=== PATIENT | male | born 1955 | race Caucasian/White ===

== ENCOUNTER 2019-11-27 05:02 | Observation (INO) | payer BC, SELFPAY ==
--- NOTE | ~2019-11-27 | XR_ITS ---
EXAMINATION: XR chest 2V DATE: 11/27/2019 05:53 INDICATION: Midline chest pain. TECHNIQUE: Frontal and lateral views of the chest were obtained. COMPARISON: Chest 2 views 01/15/2019, chest CT 08/26/2013 FINDINGS: The lung volumes are small with mild chronic relative elevation of right hemidiaphragm. The re is mild atelectasis in the lower lung zones. A calcified right lung nodule and calcified right hil ar lymph nodes are consistent with old granulomatous disease. No pleural effusion or pneumothorax. Th e heart size is normal. Surgical clips in the right upper quadrant are likely from cholecystectomy. IMPRESSION: 1. Small lung volumes with mild atelectasis in the lower lung zones. Reviewed, dictated and finalized at location A. MANAGEMENT COORDINATOR
[2019-11-27 05:08] VITALS: BP 163/106; PULSE 45; RESP 18; TEMP 36.8; O2SAT 98
--- NOTE | 2019-11-27 05:18 | ECG_ITS ---
Measurements Intervals [place] Rate: 70 P: 60 CT: 167 QRS: -22 QRSD: 104 T: 35 QT: 349 QTc: 378 Interpretive Statements SINUS RHYTHM NONSPECIFIC T-WAVE ABNORMALITY- INF/LAT LEADS BASELINE ARTIFACT- I, II, III, AVR, AVL BORDERLINE ECG Electronically Signed On 11-27-2019 7:12:07 DISASTER RECOVERY CONSULTANT by Wellington Celis D.O.
--- NOTE | 2019-11-27 05:18 | ED.CHESTPAIN ---
HPI - Chest Pain General Chief Complaint: Chest Pain Stated Complaint: chest pain Time Seen by Provider: 11/27/19 05:12 Source: patient Mode of arrival: ambulatory Limitations: no limitations History of Present Illness HPI narrative: Patient is a 64-year-old male who presents to the emergency department with complaint of chest discomfort. Patient reports onset of symptoms a couple of weeks ago. Patient reports intermittent episodes of pressure and fullness in his chest that radiates to the scapular region bilaterally right being worse than left. Patient has noticed some shortness of breath that is significantly more notable with exertion. He also reports fatigue. Patient denies any prior cardiac history and does not have any known family history of coronary artery disease. complaint: chest discomfort Onset (ago): week(s) Timing of current episode: constant Pain location: substernal Pain radiation: left scapula and right scapula Quality: fullness and other (pressure) Relieving factors: nothing Associated symptoms: dyspnea (worse with exertion) and other (fatigue) Risk Factors Coronary artery disease risk factors: hypertension Related Data Home Medications Medication Instructions Recorded Confirmed alprazolam 0.25 mg tablet 0.25 mg PO TID PRN 08/26/19 10/12/19 clindamycin HCl 150 mg capsule 150 mg PO Q6H 08/26/19 escitalopram oxalate 20 mg tablet 10 mg PO DAILY 08/26/19 10/12/19 valacyclovir 1 gram tablet 1,000 mg PO TID 08/26/19 zolpidem 10 mg tablet 10 mg PO .QHS PRN tablet 10/12/19 10/12/19 Allergies Allergy/AdvReac Type Severity Reaction Status Date / Time sulfamethizole Allergy Unknown Hives Verified 03/09/19 15:04 No Known Allergies Allergy Verified 01/15/19 08:04 Review of Systems Review of Systems: All systems reviewed & are unremarkable except as noted in HPI and below Constitutional: Constitutional: Reports fatigue and Reports lethargy ENT: Reports dizziness Cardiovascular: Cardiovascular: Reports chest pain Respiratory: Respiratory: Reports dyspnea PMFSH Past Medical History Medical History (Updated 11/27/19 @ 06:22 by Celeste Nieves MD) Chronic anxiety Chronic depression Essential (primary) hypertension Hypersomnia Male erectile dysfunction, unspecified Seasonal allergic rhinitis Vitamin B12 deficiency anemia, unspecified Vitamin D deficiency, unspecified Surgical History Surgical History (Updated 11/27/19 @ 05:22 by Celeste Nieves MD) History of cholecystectomy Family History Family History (Updated 03/09/19 @ 15:05 by DOCTOR UNKNOWN) Mother Hypertension, Onset Age: 84 Social History Social History (Updated 11/27/19 @ 05:23 by Celeste Nieves MD) Smoking status: Never smoker Gender identity (if verbalized by the patient): Male Comments PMD: Dr. Alexis Sullivan Exam Const: General: cooperative, no acute distress and alert Nutritional Appearance: well nourished Orientation/consciousness: patient oriented x3 Limitations: no limitations HENMT: Mouth: Yes lip normal and Yes moist mucous membranes Resp: Effort & Inspection: normal respiratory effort Auscultation: clear to auscultation bilaterally Cardio: Rate: regular rate Rhythm: regular rhythm Peripheral pulses: dorsalis pedis present bilateral 2+ GI: GI Palp: Yes Soft to palpation and No Tenderness to palpation present (GI) Auscultation: normal bowel sounds Skin: General skin exam: normal color Neuro: General: patient oriented x3 Cognition (Neuro): normal cognition Speech: normal speech Extrem: General: normal to inspection, full ROM and no clubbing, cyanosis or edema Psych: Mental Status: mental status grossly normal Affect: normal affect Attitude: cooperative Course Course Emergency Course: Patient with resolution of his chest discomfort with sublingual nitroglycerin. Blood pressure normalized. Patient advised of test results, diagnosis, and plans for place
[2019-11-27] MEDS: ASPIRIN 81 MG CHEWABLE TABLET 324 MG PO (05:26)
[2019-11-27 05:32] LABS: Basophils Percent Auto 0.2 % (0.2-1.2); Eosinophils Absolute Auto 0.1 K/mm3 (0-0.3); Eosinophils Percent Auto 1.6 % (0-4.4); Hemoglobin 14.3 g/dL (14.0-18.0); Immature Granulocyte Absolute 0.03 K/mm3 (0.00-0.031); Immature Granulocyte Percent A 0.4 % (0-0.5); Lymphocytes Absolute Auto 2.13 K/mm3 (0.9-3.2); Mean Corpuscular HGB Conc 32.5 g/dl (32-36); Mean Corpuscular Volume 95.4 fl (80-100); Mean Platelet Volume 10.5 fl (7.4-10.4); Monocytes Absolute Auto 0.7 K/mm3 (0.1-0.6); Monocytes Percent Auto 8.3 % (2.6-8.5); Neutrophils Absolute Auto 5.5 K/mm3 (1.3-6.7); Neutrophils Percent Auto 64.5 % (45.5-73.1); Platelet Count Result 216 k/mm3 (150-375); Red Blood Count 4.61 M/mm3 (4.6-6.20); Red Cell Distribution Width 13.3 % (11.5-14.5); White Blood Count 8.5 K/mm3 (4.5-10.0)
[2019-11-27 05:42] LABS: Prothrombin Time 13.2 Seconds (11.1-14.7)
[2019-11-27 05:43] LABS: Partial Thromboplastin Time 25.8 SECONDS (22.3-36.8)
[2019-11-27 05:45] LABS: Alanine Aminotransferase 31 U/L (4-50); Albumin Level 4.2 g/dL (3.5-5.1); Alkaline Phosphatase 77 U/L (38-126); Aspartate Amino Transferase 24 U/L (17-59); Bilirubin,Total 0.9 mg/dL (0.2-1.3); Blood Urea Nitrogen 16 mg/dL (9-20); Calcium 9.5 mg/dL (8.4-10.2); Carbon Dioxide 31 mmol/L (22-30); Chloride 102 mmol/L (98-107); Estimated CRCL calculation 84 ml/min; Estimated Glomerular Filt Rate > 60; Glucose 100 mg/dL (75-110); Potassium 3.5 mmol/L (3.4-5.0); Sodium 143 mmol/L (137-145)
[2019-11-27 05:56] LABS: Troponin I < 0.012 ng/mL (0.000-0.034)
[2019-11-27 06:01] VITALS: BP 136/88; PULSE 58; RESP 18; O2SAT 97
[2019-11-27 06:54] VITALS: BP 133/85; PULSE 58; RESP 18; O2SAT 97
[2019-11-27 06:55] LABS: Cholesterol 201 mg/dL (0-200); HDL Direct 51 mg/dL; Triglycerides 94 mg/dL (<150)
--- NOTE | 2019-11-27 07:03 | PC.NURSE ---
Patient report faxed to floor.
[2019-11-27 07:05] LABS: LDL Cholesterol Direct 126 mg/dL
[2019-11-27 07:32] VITALS: BP 147/87; PULSE 64; RESP 20; O2SAT 99
[2019-11-27 07:53] VITALS: BP 174/106; PULSE 62; RESP 13; TEMP 36.9; O2SAT 100
[2019-11-27 08:00] VITALS: PULSE 65
[2019-11-27 08:01] VITALS: BMI 38.0
[2019-11-27 09:00] LABS: Troponin I < 0.012 ng/mL (0.000-0.034)
--- NOTE | 2019-11-27 09:27 | ECG_ITS ---
Measurements Intervals [place] Rate: 60 P: 39 [place]: 164 QRS: -23 QRSD: 107 T: 30 QT: 400 QTc: 403 Interpretive Statements SINUS RHYTHM DELAYED PRECORDIAL R/S TRANSITION BORDERLINE T WAVE ABNORMALITY- ANT/INF LEADS BORDERLINE ECG Electronically Signed On 11-27-2019 8:27:31 BLEACHER PULP by Wellington Celis D.O.
[2019-11-27] MEDS: IRBESARTAN 150 MG TABLET 300 MG PO (09:38)
[2019-11-27] MEDS: hydroCHLOROthiazide 12.5 MG CAPSULE PO (09:38)
[2019-11-27] MEDS: buPROPion HCL XL (24 HR) 150 MG TABCR 300 MG PO (09:38)
--- NOTE | 2019-11-27 10:38 | PM.IMHP ---
H&P: HPI History of Present Illness Chief complaint: chest pain/htn Narrative: Cesar Luciano is a 64 year old male without any previous history of coronary artery disease who presented to the emergency room early this morning with some chest pain and was evaluated and admitted as a chest Pain Center patient. 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 He states that he actually was having these symptoms over intermittently over the last 2-3 weeks and spoke to his primary care physician about this couple of weeks ago he was advised to come to the hospital emergency room for evaluation but he did not until this morning. The patient does not notice any head pattern of exertional chest pain he is a are overweight gentleman does not exercise with any regularity but with normal activities of daily living he does not experience chest pain. 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 He denies any symptoms of palpitations orthopnea PND or edema. He does have symptoms of nocturnal snoring and interruptions in his breathing his who does have sleep apnea alerted him to the fact that he was having typical symptoms of this and a sleep study was recommended in the past but the patient also was not compliant in getting that done. He states that he has been evaluated/under observation at 5/6 hospital's in the last couple of years with episodes of chest pain and known his ever identified a cardiac problem he states he has been previously a observed here at [place], at [facility] and at least 1 other hospital he believed. None of these hospital evaluations have ever demonstrated evidence of ischemic heart disease. During one of them he had a stress echocardiogram done which he states was negative. He does have longstanding hypertension he denies any history of dyslipidemia or diabetes. There is no family history of any first-degree relative with coronary artery disease. Review of Systems Constitutional: Constitutional: Reports lethargy and Reports weakness Eyes: Eyes: Reports no additional eye complaints ENT: Reports system reviewed and no additional complaints, except as documented Cardiovascular: Cardiovascular: Reports as per HPI Respiratory: Respiratory: Reports no additional respiratory complaints Gastrointestinal: Gastrointestinal: Reports no additional gastrointestinal complaints Musculoskeletal: Musculoskeletal: Reports no additional musculoskeletal complaints Integumentary/Breasts: Skin/Breast: Reports system reviewed and no additional complaints, except as docu PMFSH Past Medical History Medical History (Updated 11/27/19 @ 06:22 by Celeste Nieves MD) Chronic anxiety Chronic depression Essential (primary) hypertension Hypersomnia Male erectile dysfunction, unspecified Seasonal allergic rhinitis Vitamin B12 deficiency anemia, unspecified Vitamin D deficiency, unspecified Surgical History Surgical History (Updated 11/27/19 @ 05:22 by Celeste Nieves MD) History of cholecystectomy Family History Family History (Updated 11/27/19 @ 08:00 by Kaelyn Monroy RN) Mother Hypertension, Onset Age: 84 Sibling Hypertension Social History Social History (Updated 11/27/19 @ 05:23 by Celeste Nieves MD) Smoking status: Never smoker Gender identity (if verbalized by the patient): Male Meds Home Medications and Allergies Home Medications Medication Instructions Recorded Confirmed Type irbesartan 300 1 tablet PO DAILY #30 tablet 09/08/19 11/27/19 Rx mg-hydrochlorothiazide 12.5 mg tablet bupropion HCl 300 mg 24 hr tablet, 300 mg PO QAM #30 tablet 10/12/19 11/27/19 Rx extended release Allergies Allergy/AdvReac Type
[2019-11-27 11:35] LABS: Troponin I < 0.012 ng/mL (0.000-0.034)
--- NOTE | 2019-11-27 12:27 | ECG_ITS ---
Measurements Intervals [place] Rate: 72 P: 26 [place]: 161 QRS: -30 QRSD: 99 T: 12 QT: 362 QTc: 398 Interpretive Statements SINUS RHYTHM BORDERLINE R WAVE PROGRESSION, ANTERIOR LEADS NONSPECIFIC T-WAVE ABNORMALITY- ANT/INF LEADS BASELINE ARTIFACT- II, III, AVL, AVF BORDERLINE ECG Electronically Signed On 11-27-2019 11:48:52 DEXIGRAPH OPERATOR by Wellington Celis D.O.
--- NOTE | 2019-11-27 13:10 | PC.NURSE ---
Discharge instructions reviewed with patient, all questions answered, IV discontinued, and patient dressing self.
== END 2019-11-27 12:40 | disposition home or self-care (01) ==
LOC: ANHED 06:52 → ANHCPC 06:59
PROVIDERS: Admitting Provider Internal Medicine Cardiovascular Disease; Emergency Provider Emergency Medicine; PCP Family Medicine; Visit Provider Specialist
DX: R07.9 Chest pain, unspecified (principal); I10 Essential (primary) hypertension; E66.9 Obesity, unspecified; Z68.38 Body mass index [BMI] 38.0-38.9, adult; F41.9 Anxiety disorder, unspecified; F32.9 Major depressive disorder, single episode, unspecified; G47.10 Hypersomnia, unspecified
CPT/HCPCS: 36415; 71046; 80053; 80061; 84484; 85025; 85610; 85730; 93005; 99285; A9270; G0378

== ENCOUNTER 2020-08-30 06:54 | Outpatient (NON) | payer BC, SELFPAY ==
[2020-08-30 23:37] LABS: SARS-CoV-2 RNA PCR Positive
== END 2020-08-30 06:55 ==
PROVIDERS: PCP Family Medicine; Visit Provider Family Medicine
DX: U07.1 COVID-19 (principal)
CPT/HCPCS: 87635; C9803; U0003

== ENCOUNTER 2021-07-14 00:34 | Day surgery (SDC) | payer BC, SELFPAY ==
[2021-07-05 08:20] VITALS: BMI 36.1
[2021-07-14 12:16] VITALS: BP 152/92; PULSE 104; RESP 18; TEMP 36.8; O2SAT 97
[2021-07-14] MEDS: LACTATED RINGERS 1,000 ML 150 ML IV CONT (12:24)
--- NOTE | 2021-07-14 12:35 | WPDANESEPPF ---
Anes - Initial Pre Proc Eval Procedure: Operation Date: 07/14/21 13:30 Proposed Procedures p Screening Colonoscopy - Ant Tracey MD Date/Time: 07/14/21 12:35 Surgeon: Ant Tracey MD Pre Op Diagnosis: neoplasm screening Patient Data Age: 66 Gender: M Height: 1.7 m Weight: 103.6 kg Last Vital Signs Temp 36.8 C 07/14/21 12:16 Pulse 104 H 07/14/21 12:16 Resp 18 07/14/21 12:16 BP 152/92 H 07/14/21 12:16 Pulse Ox 97 07/14/21 12:16 Allergies Allergy/AdvReac Type Severity Reaction Status Date / Time No Known Allergies Allergy Verified 07/14/21 12:15 Home Medications Medication Instructions Recorded Confirmed Type zolpidem 10 mg tablet See Rx Instructions PO . q.h.s. 01/12/20 07/14/21 Rx PRN #30 tablet irbesartan 300 1 tablet PO DAILY #30 tablet 09/08/20 07/14/21 Rx mg-hydrochlorothiazide 12.5 mg tablet fluticasone propionate 50 1 spray INTRANASAL HS 02/22/21 07/14/21 History mcg/actuation nasal spray,suspension tobramycin 0.3 % eye drops See Rx Instructions OPHTHALMIC 02/22/21 07/14/21 Rx (EYE) Q4H #5 ml amlodipine 5 mg tablet 5 mg PO DAILY #30 tablet 03/28/21 07/14/21 Rx tamsulosin [Flomax] 0.4 mg PO HS 07/05/21 07/14/21 History Patient hx anesthesia problems: none Family hx anesthesia problems: none Results Review: All pre-operative results and documents have been reviewed as part of the pre-operative evaluation. [facility] Past Medical History Medical History Acute sinusitis, unspecified Adult BMI 34.0-34.9 kg/sq m BMI 36.0-36.9,adult Body mass index (bmi) 38.0-38.9, adult (03/09/19) BPH without obstruction/lower urinary tract symptoms Chest pain Chronic anxiety Chronic depression Colon cancer screening Conjunctivitis COVID-19 (08/29/20) Eczema of lower extremity Essential (primary) hypertension Fever Hypersomnia Insomnia Male erectile dysfunction, unspecified Mixed hyperlipidemia Nocturia Plantar fasciitis, bilateral Seasonal allergic rhinitis Vitamin B12 deficiency anemia, unspecified Vitamin D deficiency, unspecified Surgical History Surgical History History of cholecystectomy Family History Family History Mother Hypertension, Onset Age: 84 Sibling Hypertension Social History Social History Smoking status: Never smoker Alcohol intake: current Substance use: never Substance use type: does not use Living arrangements: with family Gender identity (if verbalized by the patient): Male Spiritual care concerns: No Anes - Eval Final PreProcedure Day of Procedure 07/14/21 12:35 Patient weight: obese Heart: regular rate and rhythm Lungs: clear to auscultation Airway: Mallampati scale class II Neurological: alert and oriented Last oral intake: >/= 8 hours ASA classification: III Emergent: no Anesthetic plan: proceed Anesthesia type and monitoring: general GIVS and standard monitoring Results Review: All pre-operative results and documents have been reviewed as part of the pre-operative evaluation. Informed Consent: The patient's anesthetic plan and its attendant risks and benefits were discussed with the patient/family/POA. Questions were solicited and answers provided to the satisfaction of the patient/family/POA.
--- NOTE | 2021-07-14 12:54 | PM.HPGS ---
History of Present Illness History of Present Illness Consent: Risks, benefits, and alternatives have been discussed and questions answered. Patient agrees to proceed with procedure. Chief complaint: neoplasm screening Narrative: Cesar Luciano is a 66 year old male Referred for colon cancer screening. Review of Systems Review of Systems: All systems reviewed & are unremarkable except as noted in HPI and below PMFSH Past Medical History Medical History Acute sinusitis, unspecified Adult BMI 34.0-34.9 kg/sq m BMI 36.0-36.9,adult Body mass index (bmi) 38.0-38.9, adult (03/09/19) BPH without obstruction/lower urinary tract symptoms Chest pain Chronic anxiety Chronic depression Colon cancer screening Conjunctivitis COVID-19 (08/29/20) Eczema of lower extremity Essential (primary) hypertension Fever Hypersomnia Insomnia Male erectile dysfunction, unspecified Mixed hyperlipidemia Nocturia Plantar fasciitis, bilateral Seasonal allergic rhinitis Vitamin B12 deficiency anemia, unspecified Vitamin D deficiency, unspecified Surgical History Surgical History History of cholecystectomy Family History Family History Mother Hypertension, Onset Age: 84 Sibling Hypertension Social History Social History Smoking status: Never smoker Alcohol intake: current Substance use: never Substance use type: does not use Living arrangements: with family Gender identity (if verbalized by the patient): Male Spiritual care concerns: No Meds Home Medications and Allergies Home Medications Medication Instructions Recorded Confirmed Type zolpidem 10 mg tablet See Rx Instructions PO . q.h.s. 01/12/20 07/14/21 Rx PRN #30 tablet irbesartan 300 1 tablet PO DAILY #30 tablet 09/08/20 07/14/21 Rx mg-hydrochlorothiazide 12.5 mg tablet fluticasone propionate 50 1 spray INTRANASAL HS 02/22/21 07/14/21 History mcg/actuation nasal spray,suspension tobramycin 0.3 % eye drops See Rx Instructions OPHTHALMIC 02/22/21 07/14/21 Rx (EYE) Q4H #5 ml amlodipine 5 mg tablet 5 mg PO DAILY #30 tablet 03/28/21 07/14/21 Rx tamsulosin [Flomax] 0.4 mg PO HS 07/05/21 07/14/21 History Allergies Allergy/AdvReac Type Severity Reaction Status Date / Time No Known Allergies Allergy Verified 07/14/21 12:15 Vital Signs Vital Signs - 24 hr 07/14/21 12:16 Temperature 36.8 C Pulse Rate 104 H Respiratory Rate 18 Blood Pressure 152/92 H Pulse Oximetry 97 Exam Const: General: alert Orientation/consciousness: patient oriented x3 Resp: Auscultation: clear to auscultation bilaterally Cardio: Rhythm: regular rhythm GI: GI Palp: Yes Soft to palpation and No Tenderness to palpation present (GI) Neuro: General: patient oriented x3 Assessment and Plan Assessment and plan (1) Colon cancer screening: Code(s): Z12.11 - Encounter for screening for malignant neoplasm of colon Status: Acute Assessment and Plan: Colonoscopy with possible biopsy or polypectomy or cautery or injection of substances.
[2021-07-14 13:20] VITALS: BP 117/78; PULSE 101; RESP 22; O2SAT 95
[2021-07-14 13:30] VITALS: BP 140/94; PULSE 96; RESP 22; O2SAT 96
[2021-07-14 13:40] VITALS: BP 131/95; PULSE 89; RESP 27; O2SAT 97
== END 2021-07-14 13:52 | disposition home or self-care (01) ==
PROVIDERS: PCP Family Medicine; Visit Provider Internal Medicine Gastroenterology
PROC: 0DJD8ZZ Inspection of Lower Intestinal Tract, Via Natural or Artificial Opening Endoscopic (ICD-10-PCS; CPT 45378; principal; 2021-07-14 13:30)
DX: Z12.11 Encounter for screening for malignant neoplasm of colon (principal); K57.30 Diverticulosis of large intestine without perforation or abscess without bleeding; K63.5 Polyp of colon; Z86.16 Personal history of COVID-19; F41.8 Other specified anxiety disorders; I10 Essential (primary) hypertension; L30.9 Dermatitis, unspecified; E78.2 Mixed hyperlipidemia; E55.9 Vitamin D deficiency, unspecified; E53.8 Deficiency of other specified B group vitamins; G47.10 Hypersomnia, unspecified; G47.00 Insomnia, unspecified; N40.0 Benign prostatic hyperplasia without lower urinary tract symptoms; E66.9 Obesity, unspecified; Z68.35 Body mass index [BMI] 35.0-35.9, adult
CPT/HCPCS: 45380; 88305; J2001; J2704; J7120

== ENCOUNTER → 2021-07-25 17:11 | Outpatient (CLI) | payer BC, SELFPAY ==
--- NOTE | ~2021-07-25 | XR_ITS ---
XR knee LT min 4V 07/25/2021 17:33 Indication: Left knee pain Procedure: 4 views left knee Comparison: No prior studies for comparison. Findings: No fracture, subluxation or dislocation. Moderate joint effusion. No significant joint spac e narrowing. No foreign bodies. There are vascular calcifications. Impression: 1: Moderate joint effusion. Reviewed, dictated and finalized at location A. Impression: 1: Moderate joint effusion.
--- NOTE | ~2021-07-25 | XR_ITS ---
XR lumbar spine min 4V 07/25/2021 17:34 Indication: Low back pain Procedure: 5 views lumbar spine Comparison: MRI dated 12/31/2016. Findings: There is lumbarization of S1. There is moderate facet hypertrophy of the lower lumbar spine . There is grade 1 degenerative spondylolisthesis at L5-S1. There is mild disc narrowing at L4-5 and L5-S1. There is atherosclerosis of the aorta. No acute fracture, subluxation or dislocation. Sacral f oramen are symmetric. There are cholecystectomy clips. Impression: 1: Moderate lower lumbar spondylosis. Reviewed, dictated and finalized at location A. Impression: 1: Moderate lower lumbar spondylosis.
== END ==
PROVIDERS: PCP Family Medicine; Visit Provider Family Medicine
DX: M25.562 Pain in left knee (principal); G89.29 Other chronic pain; M54.41 Lumbago with sciatica, right side; M47.816 Spondylosis without myelopathy or radiculopathy, lumbar region; M25.462 Effusion, left knee
CPT/HCPCS: 72110; 73564

== ENCOUNTER → 2021-09-27 14:40 | Outpatient (CLI) | payer BC, SELFPAY ==
--- NOTE | ~2021-09-27 | MR_ITS ---
EXAMINATION: MR knee LT wo con DATE: 09/27/2021 15:42 INDICATION: Left knee pain TECHNIQUE: Magnetic resonance imaging (MRI) of the left knee was performed without intravenous contra st. Sequences included coronal PD-weighted FSE, coronal PD-weighted FS FSE, sagittal T2-weighted FSE , sagittal PD-weighted FS FSE and axial PD weighted fat saturated FSE. COMPARISON: None. FINDINGS: Medial compartment: Complex tear involving the body and posterior horn of the medial meniscus. There is full/near full-th ickness cartilage loss along significant portions of the anterior and medial two thirds of the medial tibial plateau as well as the anterior to central weightbearing medial femoral condyle. There is sug gestion of some early remodeling of the articular cortices with underlying low signal intensity eburn ation and mild increased marrow fluid signal. There is some deep fissuring with additional subarticul ar increased signal along the posterior weightbearing medial femoral condyle where the cartilage thic kness is otherwise relatively preserved. Lateral compartment: Lateral meniscus is normal. Articular cartilage is normal. Patellofemoral compartment: Chondral ulceration and deep fissuring at the trochlear groove and immediately adjacent medial and la teral trochlea. Moderate-sized central subchondral osteophyte at the inferomedial aspect of the media l trochlea. Partial thickness chondral ulceration and deep fissuring at the medial patellar facet. Mo re shallow chondral fissuring at the patellar apical ridge and lateral facet. Ligaments and tendons: Anterior and posterior cruciate ligaments are normal. The fibular collateral ligament complex is norm al. There is thickening and mild increased signal at the proximal medial collateral ligament consiste nt with age-indeterminate low to moderate grade sprain. The extensor mechanism is normal. The visuali zed medial and lateral hamstring tendons as well as the iliotibial band are normal. Fluid: Large left knee joint effusion with mild synovitis at the suprapatellar pouch. Small Alan's cyst. No loose osteochondral bodies identified. Osseous/other: No fracture or pathologic marrow replacing process. IMPRESSION: 1. 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 2. Mild patellofemoral osteoarthritis with moderate to high-grade patellofemoral osteoarthritis. 3. Likely reactive large right knee joint effusion. 4. Mild thickening and mild increased signal of the proximal medial collateral ligament consistent wi th age-indeterminate low to moderate grade sprain. 5. Small Alan's cyst. Reviewed, dictated and finalized at location A. RATION HAND IMPRESSION: 1. Complex medial meniscal tear with severe osteoarthritis and extensive high-g rade chondromalacia in the medial compartment. 2. Mild patellofemoral osteoarthritis with moderate to high-grade patellofemora l osteoarthritis. 3. Likely reactive large right knee joint effusion. 4. Mild thickening and mild increased signal of the proximal medial collateral ligament consistent with age-indeterminate low to moderate grade sprain. 5. Small Alan's cyst.
== END ==
PROVIDERS: PCP Family Medicine; Visit Provider Orthopaedic Surgery
DX: S83.232A Complex tear of medial meniscus, current injury, left knee, initial encounter (principal); M17.12 Unilateral primary osteoarthritis, left knee; M71.22 Synovial cyst of popliteal space [Baker], left knee
CPT/HCPCS: 73721

== ENCOUNTER 2021-11-09 08:50 | Outpatient (CLI) | payer BC, SELFPAY ==
[2021-11-09 09:14] LABS: Hematocrit 45.4 % (42.0-52.0); Hemoglobin 14.7 g/dL (14.0-18.0); Mean Corpuscular HGB Conc 32.4 g/dl (32-36); Mean Corpuscular Hemoglobin 31.4 pg (26-34); Mean Platelet Volume 10.4 fl (7.4-10.4); Platelet Count Result 189 k/mm3 (150-375); Red Blood Count 4.68 M/mm3 (4.6-6.20); Red Cell Distribution Width 13.5 % (11.5-14.5); White Blood Count 8.3 K/mm3 (4.5-10.0)
[2021-11-09 09:19] LABS: Add Urine Microscopic? YES; Appearance Urine Clear (Clear); Bacteria Urine Trace /hpf; Bilirubin Urine Negative (Negative); Blood Urine Negative (Negative); Color Urine Yellow (Yellow); Glucose Urine UA Negative (Negative); Ketones Urine Negative (Negative); Leukocyte Esterase Ur Negative LEU/UL (NEGATIVE); Mucus Urine Rare /lpf; Nitrate Urine Negative (Negative); Protein Urine Negative (Negative); Specific Grav Ur 1.016 (1.001-1.035); Squamous Epithelial Cell Urine Rare /hpf (Few); Urobilinogen Urine Negative mg/dL (<2.0); WBC Urine 0-3 /hpf (0-3)
--- NOTE | 2021-11-09 09:21 | ECG_ITS ---
Measurements Intervals [place] Rate: 90 P: [place]: 0 QRS: -19 QRSD: 97 T: 1 QT: 358 QTc: 440 Interpretive Statements ATRIAL FIBRILLATION DELAYED PRECORDIAL R/S TRANSITION BORDERLINE T WAVE ABNORMALITY- INFERIOR LEADS ABNORMAL ECG Electronically Signed On 11-09-2021 9:34:26 SHEET ROLLER OPERATOR by Wellington Celis D.O.
[2021-11-09 09:43] LABS: Alanine Aminotransferase 17 U/L (4-50); Albumin Level 4.4 g/dL (3.5-5.1); Alkaline Phosphatase 73 U/L (38-126); Anion Gap 5 mmol/L (8-16); Aspartate Amino Transferase 21 U/L (17-59); Bilirubin,Total 1.8 mg/dL (0.2-1.3); Blood Urea Nitrogen 18 mg/dL (9-20); Calcium 9.7 mg/dL (8.4-10.2); Carbon Dioxide 27 mmol/L (22-30); Chloride 109 mmol/L (98-107); Cholesterol 201 mg/dL (0-200); Estimated Glomerular Filt Rate > 60; Glucose 120 mg/dL (65-110); HDL Direct 50 mg/dL; LDL Cholesterol Direct 115 mg/dL; Sodium 141 mmol/L (137-145); Triglycerides 54 mg/dL (<150)
[2021-11-09 09:57] LABS: Prostate Specific Antigen 2.3 ng/mL (< OR = 4.0)
[2021-11-09 10:01] LABS: Thyroid Stimulating Hormone 0.934 uIU/mL (0.465-4.680)
[2021-11-09 10:05] LABS: Hemoglobin A1C 5.6 % (<5.7)
[2021-11-09 10:36] LABS: Vitamin B12 > 1000.0 pg/mL (239-931)
== END 2021-11-09 08:51 | disposition home or self-care (01) ==
PROVIDERS: PCP Family Medicine; Visit Provider Family Medicine
DX: E78.2 Mixed hyperlipidemia (principal); I10 Essential (primary) hypertension; D51.9 Vitamin B12 deficiency anemia, unspecified; R73.01 Impaired fasting glucose; Z12.5 Encounter for screening for malignant neoplasm of prostate; R94.31 Abnormal electrocardiogram [ECG] [EKG]
CPT/HCPCS: 36415; 80048; 80061; 80076; 81001; 82607; 83036; 84153; 84443; 85027; 93005; G0103

== ENCOUNTER 2021-11-14 09:42 | Outpatient (CLI) | payer BC, SELFPAY ==
[2021-11-14 10:50] LABS: Basophils Percent Auto 0.3 % (0.2-1.2); Eosinophils Absolute Auto 0.1 K/mm3 (0-0.3); Eosinophils Percent Auto 0.8 % (0-4.4); Hematocrit 47.7 % (42.0-52.0); Hemoglobin 15.7 g/dL (14.0-18.0); Immature Granulocyte Absolute 0.03 K/mm3 (0.00-0.031); Immature Granulocyte Percent A 0.3 % (0-0.5); Lymphocytes Absolute Auto 1.56 K/mm3 (0.9-3.2); Mean Corpuscular HGB Conc 32.9 g/dl (32-36); Mean Corpuscular Volume 94.1 fl (80-100); Mean Platelet Volume 10.5 fl (7.4-10.4); Monocytes Absolute Auto 0.9 K/mm3 (0.1-0.6); Monocytes Percent Auto 8.7 % (2.6-8.5); Neutrophils Absolute Auto 7.2 K/mm3 (1.3-6.7); Neutrophils Percent Auto 73.9 % (45.5-73.1); Platelet Count Result 219 k/mm3 (150-375); Red Blood Count 5.07 M/mm3 (4.6-6.20); Red Cell Distribution Width 13.2 % (11.5-14.5); White Blood Count 9.8 K/mm3 (4.5-10.0)
== END 2021-11-14 09:43 | disposition home or self-care (01) ==
LOC: ANHSURGERY 09:46
PROVIDERS: PCP Family Medicine; Visit Provider Orthopaedic Surgery
DX: Z01.812 Encounter for preprocedural laboratory examination (principal); M17.12 Unilateral primary osteoarthritis, left knee; Z79.899 Other long term (current) drug therapy
CPT/HCPCS: 36415; 85025; 86850; 86900; 86901; 87081

== ENCOUNTER 2021-11-17 13:08 | Outpatient (CLI) | payer BC, SELFPAY ==
--- NOTE | 2021-11-17 13:30 | ECHO_ITS ---
Patient Info Name: Cesar Luciano Age: 66 years : 1955 Gender: Male Ht: 67 in Wt: 230 lbs BSA: 2.26 m2 HR: 92 bpm BP: 126 / 93 mmHg Heart Rhythm: Sinus Rhythm, Atrial Fibrillation Technical Quality: Fair Exam Date: 11/17/2021 1:37 PM Exam Location: [facility] Patient Status: Outpatient Admit Date: 11/17/2021 Staff Ordering Physician: Alexis Sullivan MD Account Officer: Marii Haynes RDCS Attending Provider: Alexis Sullivan MD Referring Physician: Nate PAT; Exam Type: CA echo doppler color flow Study Info Indications - Unspecified atrial fribrillation Complete two-dimensional, color flow and Doppler transthoracic echocardiogram is performed. Summary 1. Complete two-dimensional, color flow and Doppler transthoracic echocardiogram is performed. 2. Left ventricular chamber dimension is normal. 3. Left ventricular systolic function is normal, estimated at 65-70%. 4. There is mildly increased left ventricular wall thickness. 5. The left ventricular diastolic function is indeterminate. 6. There is mild tricuspid valve regurgitation. 7. No pulmonary hypertension, estimated pulmonary arterial systolic pressure is 31 mmHg. 8. There is trace mitral valve regurgitation. 9. There is no aortic valve stenosis. Left Ventricle Left ventricular chamber dimension is normal. Left ventricular systolic function is normal, estimated at 65-70%. There is mildly increased left ventricular wall thickness. The left ventricular diastolic function is indeterminate. Right Ventricle Right ventricular chamber dimension is normal. Right ventricular systolic function is normal. Left Atria Left atrial chamber dimension is mildly enlarged. Right Atria Right atrial chamber dimension is mildly enlarged. Aortic Valve The aortic valve is probable trileaflet. There is mild aortic valve sclerosis. There is no aortic valve stenosis. There is no aortic valve regurgitation. Pulmonic Valve The pulmonic valve is not well visualized. There is mild pulmonic regurgitation. Mitral Valve The mitral valve has normal leaflets. There is trace mitral valve regurgitation. The mitral valve annulus is mildly calcified. Tricuspid Valve The tricuspid valve leaflets are normal. There is mild tricuspid valve regurgitation. No pulmonary hypertension, estimated pulmonary arterial systolic pressure is 31 mmHg. Pericardium/Pleural The pericardium appears epicardial fat pad. There is small pericardial effusion. Aorta The aortic root size at the sinus of Valsalva is normal. There is mild aortic atherosclerosis. Left Ventricular Outflow Tract Name Value Normal LVOT 2D LVOT Diameter 2.0 cm LVOT Doppler LVOT Peak Gradient 5 mmHg LVOT Mean Gradient 2 mmHg LVOT VTI 17 cm LVOT VTI/AV VTI Ratio 0.9 LVOT Stroke Volume 54 ml LVOT CO 4.7 l/min LVOT CI 2.1 l/min/m2 Pulmonic Valve
== END 2021-11-17 13:09 | disposition home or self-care (01) ==
PROVIDERS: PCP Family Medicine; Visit Provider Family Medicine
DX: I48.91 Unspecified atrial fibrillation (principal); I07.1 Rheumatic tricuspid insufficiency
CPT/HCPCS: 93306

== ENCOUNTER 2021-11-27 00:20 | Day surgery (SDC) | payer BC, SELFPAY ==
--- NOTE | 2021-11-14 09:58 | PC.NURSE ---
Report to the Outpatient Waiting Room, entrance under the green pavilion located off [facility], at time _0600_ on date _11/27/21_. OR Time: _0730_. - You will be asked a series of questions to screen for COVID 19 for your protection. - A mask is required within the hospital. - One visitor allowed at this time. Preoperative COVID Testing Requirements: NONE Patients may have clear liquids (water, carbonated beverages, clear teas, apple juice) until 3 hours prior to surgery (0430 AM) with a maximum of 20 ounces. - No food from midnight until time of surgery Take the following medications with a SIP of water the morning of surgery: _AMLODIPINE, DULOXETINE, TYLENOL IF NEEDED FOR PAIN_ Medications to discontinue per DR. SHAIKH'S INSTRUCTIONS - JOHN ASK AT APPT 11/21/21 ____ Medications to discontinue per ANESTHESIA - ALL VITAMINS 3 DAYS PRIOR TO SURGERY, LAST DOSE TO BE TAKEN ON 11/23/21 Please no make-up, nail central african, hairspray, perfume, deodorant, or body powder the day of surgery. No jewelry (including any body piercings) or valuables the day of surgery, leave them at home. Please take a shower or bath the night before, or the morning of, surgery with an antibacterial soap. Wear comfortable, loose fitting clothing. - Jewelry must be removed prior to entering the operating room. Rings and piercings that are not removed may be cut off. - The hospital will not accept responsibility for valuables. - Please leave all valuables, including medications, at home the day of surgery. If you are going home after surgery, a licensed dedicated truck driver must drive you home. - NO public transportation without another adult. - We recommend that an adult stay with you for 24 hours following discharge. - We also recommend that you do not drive, make important decision, drink alcoholic beverages, or take any drugs that were not prescribed by your health care provider for at least 24 hours after your discharge time. Follow any additional instructions given to you from your surgeon. Instructions given to PT and asked if any additional questions and then verbalized understanding. Patient advised to call surgeon office or pre surgery nurse liaisonMISHA [phone] if any additional questions.
[2021-11-14 10:21] VITALS: BP 132/80; PULSE 94; RESP 20; TEMP 36.9; O2SAT 95; BMI 35.5
--- NOTE | 2021-11-14 10:48 | PC.NURSE ---
BLAZE AT DR. SHAIKH'S OFFICE INFORMED THAT PT ARRIVED FOR PAT APPT TODAY, HAS ECHO SCHEDULED WITH DR. MACIEL 11/17/[address] WATSON STARTED PT ON [facility] - STATES WILL LET DR. SHAIKH KNOW
[2021-11-27] VITALS (13 sets, daily range): BP systolic 100–142; BP diastolic 65–105; PULSE 78–106; RESP 14–18; TEMP 36–37.1; O2SAT 91–99
--- NOTE | ~2021-11-27 | XR_ITS ---
EXAMINATION: XR knee LT 2V DATE: 11/27/2021 09:56 INDICATION: Left knee arthroplasty. Postop. TECHNIQUE: 2 views of left knee were obtained. COMPARISON: Left knee radiographs 07/25/2021 FINDINGS: There is a medial compartment arthroplasty in near-anatomic alignment. No fracture. There a re tiny osteophytes in the lateral and patellofemoral compartments. There is gas in the knee joint an d soft tissues, consistent with recent surgery. IMPRESSION: 1. Medial compartment arthroplasty in near-anatomic alignment. Reviewed, dictated and finalized at location A. POT OPERATOR
[2021-11-27] MEDS: LACTATED RINGERS 1,000 ML 30 ML IV CONT ×2 (06:34→09:46)
[2021-11-27] MEDS: TRANEXAMIC ACID 1,000MG/ISO100 1,000 MG/100 ML BAG 200 MG IVPB (06:36)
[2021-11-27] MEDS: ACETAMINOPHEN 500 MG TABLET 1000 MG PO (06:37)
--- NOTE | 2021-11-27 06:51 | WPDANESEPPF ---
Anes - Initial Pre Proc Eval Procedure: Operation Date: 11/27/21 07:30 Proposed Procedures p Unicompartmental Left Knee Arthroplasty - Trey Arevalo MD Date/Time: 11/27/21 06:51 Surgeon: Trey Arevalo MD Pre Op Diagnosis: O A Left Knee Patient Data Age: 66 Gender: M Height: 1.7 m Weight: 99.55 kg Last Vital Signs Temp 36.0 C L 11/27/21 06:07 Pulse 86 11/27/21 06:07 Resp 18 11/27/21 06:07 BP 132/85 11/27/21 06:45 Pulse Ox 97 11/27/21 06:07 Allergies Allergy/AdvReac Type Severity Reaction Status Date / Time No Known Allergies Allergy Verified 11/27/21 06:18 Home Medications Medication Instructions Recorded Confirmed Type tamsulosin [Flomax] 0.4 mg PO HS 07/05/21 11/27/21 History apixaban 5 mg tablet 5 mg PO BID 11/09/21 11/27/21 History acetaminophen [Tylenol Ex Str 1,000 mg PO QID PRN 11/14/21 11/27/21 History Arthritis Pain] amlodipine 5 mg PO QAM 11/14/21 11/27/21 History duloxetine 30 mg PO QAM 11/14/21 11/27/21 History irbesartan-hydrochlorothiazide 1 tablet PO QAM 11/14/21 11/27/21 History fluticasone propionate [Flonase] 1 spray INTRANASAL DAILY PRN 11/27/21 11/27/21 History Patient hx anesthesia problems: none Family hx anesthesia problems: none Results Review: All pre-operative results and documents have been reviewed as part of the pre-operative evaluation. [facility] Past Medical History Medical History (Updated 11/21/21 @ 16:15 by Trey Arevalo MD) Acute sinusitis, unspecified Adult BMI 34.0-34.9 kg/sq m Arthritis of left knee Atrial fibrillation with normal ventricular rate (11/09/21) Echocardiogram on 11/17/2021 reveals ejection fraction 65-70% with intermediate diastolic dysfunction with small pericardial effusion and mild tricuspid valve regurgitation and mild mitral valve regurgitation BMI 36.0-36.9,adult Body mass index (bmi) 38.0-38.9, adult (03/09/19) BPH without obstruction/lower urinary tract symptoms PSA 2.3 on 11/09/2021 Chest pain Chronic anxiety Chronic depression Colon cancer screening Conjunctivitis COVID-19 (08/29/20) Eczema of lower extremity Essential (primary) hypertension Exposure to COVID-19 virus (~10/08/21) Fever Hypersomnia Hypertension Insomnia Male erectile dysfunction, unspecified Mixed hyperlipidemia Nocturia Plantar fasciitis, bilateral Polyp of colon (07/14/21) colon polyp on 07/14/2021 Seasonal allergic rhinitis Vitamin B12 deficiency anemia, unspecified Vitamin D deficiency, unspecified Surgical History Surgical History History of cholecystectomy Family History Family History Mother Hypertension, Onset Age: 84 Sibling Hypertension Social History Social History Smoking status: Never smoker Second hand tobacco smoke exposure: No Alcohol intake: current Alcohol use details: STATES MAYBE 6/MONTH Substance use: never Substance use type: does not use Living arrangements: with family 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, 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 Informed Consent: The patient's anesthetic plan and its attendant risks and benefits were discussed with the patient/family/POA. Questions were solicited and answers p
--- NOTE | 2021-11-27 07:17 | WPDHPUPDATE1 ---
History and Physical Update Update Date/Time: 11/27/21 07:17 History and Physical has been reviewed, including an updated exam of the patient. There are NO changes in the patient's condition. Risks, benefits, and alternatives have been discussed and questions answered. Patient agrees to proceed with procedure.
[2021-11-27] MEDS: ceFAZolin 2 GM/D5W 50 ML 2 GM/50 ML BAG IVPB ×2 (07:28→16:50)
--- NOTE | 2021-11-27 07:31 | WPDANESPNB ---
Anes - Peripheral Nerve Block Date/Time: 11/27/21 07:31 I have discussed with the patient/family/POA the placement of a peripheral nerve block for post-operative pain management, including associated risks, benefits, complications, and side effects. Alternative methods of post-operative analgesia were detailed. Questions were solicited and answers provided to the satisfaction of the patient/family/POA. Time-Out: A pre-procedural Time-Out was completed immediately before starting the procedure and confirmed: Patient Identification, Site, Procedure, Patient Position and the Availability of Requisite Equipment. Clinical Indications: Acute post-operative pain management requested by the operative surgeon. Nerve Block Insertion Note Anes-nerve block: adductor canal left Patient position: supine Skin prep: chlorhexidine Needle: 22 gauge, stimulating, insulated echogenic needle. Needle length: 80 mm Technique: ultrasound Injectate: bupivacaine 0.5% with epi 5 mcg/ml (30cc - no epi) Observations: tolerated well Complications: none
[2021-11-27] MEDS: ceFAZolin SODIUM 1 GM VIAL IV PUSH (09:22)
--- NOTE | 2021-11-27 09:37 | W.PM.PROC2 ---
Procedure Note - Detailed Date of Procedure 11/27/21 Pre-op Diagnosis O A Left Knee Post-op Diagnosis same Procedure Performed Left knee unicompartmental replacement Surgeon Trey Arevalo MD Emergency Response Technician Kaelyn Roth Anesthesia general and regional Description of Procedure The patient was identified and the proper site identified. In the preop holding area the anesthesia team performed a left lower extremity block. He was then taken to the operating room and transferred to the OR table placing him supine taking care to pad his torso and extremities. After general anesthetic induction and intubation. a nonsterile tourniquet was placed high on the left thigh. The extremity was positioned, prepped, and draped in the usual sterile fashion. The extremity was exsanguinated and the tourniquet was inflated to 300 mmHg remaining up for approximately 49 minutes. An anterior midline incision was made and sharp dissection carried down through the subcutaneous tissue to the extensor mechanism. A modified medial parapatellar arthrotomy was performed. The articular and meniscal cartilage of the lateral compartment was inspected and noted to be in excellent shape. Anterior and posterior cruciate ligaments were in continuity. There were extensive degenerative changes medial compartment and milder patellofemoral changes. The marginal osteophytes were removed from the notch and the medial aspect of the medial femoral condyle, and the remaining meniscal tissue was removed. The femur was sized to a medium. With the appropriate spoon and tibial guide, a tibial resection was made. This was sized to a. Using the mill, the flexion and extension gaps were balanced. A trial reduction was undertaken. The range of motion of the knee was noted to be from full extension to 120 ? of flexion with excellent stability through range of motion. The polyethylene insert tracked nicely. The trial components were removed. The real medium femur and size a tray for the left knee were cemented into place. The knee was held in about 30? of flexion while the cement cured. The tourniquet was released and excess cement was removed from the joint. Hemostasis was carried out. The knee was flushed with a copious amount of irrigation. After trialing, the appropriate real size 4 insert for the femoral component was inserted and the stability again assessed. The knee was noted to be stable as it was taken through range of motion. The periarticular tissues were injected with 60 milliliters of the arthroplasty solution after a 3 minutes Betadine bath wound. Surgicel powder was used deep and superficial to the extensor mechanism. The extensor mechanism was repaired with 0 looped PDS suture, the subcu with 3-0 Monocryl and 2-0 Quill for the skin. A sterile dressing was applied. The patient tolerated the procedure well, was awakened, extubated, and taken to recovery room in stable condition. Estimated Blood Loss 150 Tourniquet Time 49 Drains No Packing No Pathology none sent Complications No immediate complications Condition stable Disposition PACU
--- NOTE | 2021-11-27 10:05 | SUR.PHASEI ---
Simple mask removed at 1005.
[2021-11-27] MEDS: SODIUM CHLORIDE 0.9% IV 1,000 ML 125 ML IV CONT (11:15)
[2021-11-27] MEDS: CELECOXIB 200 MG CAPSULE PO (16:50)
--- NOTE | 2021-11-27 19:48 | PM.IMCN ---
Assessment and Plan Assessment and plan (1) Arthritis of left knee: Code(s): M17.12 - Unilateral primary osteoarthritis, left knee Status: Chronic Assessment and Plan: Patient is status post unicompartmental replacement of the left knee. Patient is doing extremely well. All pain medications DVT prophylaxis will be left up to Orthopedic surgeon. (2) Atrial fibrillation with normal ventricular rate: Onset Date: 11/09/21 Code(s): I48.91 - Unspecified atrial fibrillation Status: Acute Assessment and Plan: Patient's ventricular rate is well controlled this time so will continue with home medications. Patient has been placed back on his Eliquis. Will continue to monitor ventricular rate to ensure that it does remain within normal limits. (3) Essential (primary) hypertension: Code(s): I10 - Essential (primary) hypertension Status: Acute Assessment and Plan: Will resume patient's home medications and adjust medications accordingly for optimal blood pressure control. Thank you for allowing us to participate in the care of this patient. HPI Data of Consult Consult date: 11/27/21 Requesting Physician: Trey Arevalo MD Primary Care Provider: Alexis Sullivan MD Consult Narrative Narrative: Cesar Luciano is a 66 year old male presented to the hospital for an elective left knee unicompartmental replacement. Patient underwent surgery today and is doing well. Patient is sitting up in chair and had been working with physical therapy when seen. Patient states at this point time he has no pain to his knee. Patient states he has a known history of hypertension, atrial fibrillation, left ventricular diastolic dysfunction, erectile dysfunction, and renal calculi. Patient states that he was unaware that he had atrial fibrillation until he was having preoperative work for the surgery. Patient states he did have a cardiac workup and was placed on Eliquis. Patient denied any chest discomfort, shortness of breath, lightheadedness, dizziness, syncopal, or near syncopal episodes prior to surgery or at this time. Review of Systems Review of Systems: A 12 point review of systems was completed patient all pertinent positive and negative per HPI the remainder are unremarkable. [facility] Past Medical History Medical History (Updated 11/21/21 @ 16:15 by Trey Arevalo MD) Acute sinusitis, unspecified Adult BMI 34.0-34.9 kg/sq m Arthritis of left knee Atrial fibrillation with normal ventricular rate (11/09/21) Echocardiogram on 11/17/2021 reveals ejection fraction 65-70% with intermediate diastolic dysfunction with small pericardial effusion and mild tricuspid valve regurgitation and mild mitral valve regurgitation BMI 36.0-36.9,adult Body mass index (bmi) 38.0-38.9, adult (03/09/19) BPH without obstruction/lower urinary tract symptoms PSA 2.3 on 11/09/2021 Chest pain Chronic anxiety Chronic depression Colon cancer screening Conjunctivitis COVID-19 (08/29/20) Eczema of lower extremity Essential (primary) hypertension Exposure to COVID-19 virus (~10/08/21) Fever Hypersomnia Hypertension Insomnia Male erectile dysfunction, unspecified Mixed hyperlipidemia Nocturia Plantar fasciitis, bilateral Polyp of colon (07/14/21) colon polyp on 07/14/2021 Seasonal allergic rhinitis Vitamin B12 deficiency anemia, unspecified Vitamin D deficiency, unspecified Surgical History Surgical History (Updated 11/27/21 @ 19:51 by Thelma Brar APRN) History of cholecystectomy Status post left unicompartmental knee replacement Family History Family History Mother Hypertension, Onset Age: 84 Sibling Hypertension Social History Social History Smoking status: Never smoker Second hand tobacco smoke exposure: No Alcohol intake: current Drinks per week: 1 Alcoh
[2021-11-27] MEDS: SENNA/DOCUSATE SODIUM TABLET 2 TAB PO (20:52)
[2021-11-27] MEDS: TAMSULOSIN HCL 0.4 MG CAPSULE PO (20:52)
[2021-11-28] MEDS: ceFAZolin 2 GM/D5W 50 ML 2 GM/50 ML BAG IVPB ×2 (00:02→07:55)
[2021-11-28 00:31] VITALS: BP 137/84; PULSE 90; RESP 18; TEMP 37; O2SAT 92
[2021-11-28 05:31] VITALS: BP 119/70; PULSE 100; RESP 16; TEMP 36.4; O2SAT 96
--- NOTE | 2021-11-28 07:00 | PM.IMPN ---
Progress Note: A&P Assessment and Plan (1) Arthritis of left knee: Code(s): M17.12 - Unilateral primary osteoarthritis, left knee Status: Resolved Assessment and Plan: status post unicompartmental replacement of the left knee POD 1 Seems to be do extremely well Pain medications ordered DVT Eliquis per ortho (2) Atrial fibrillation with normal ventricular rate: Onset Date: 11/09/21 Code(s): I48.91 - Unspecified atrial fibrillation Status: Acute Assessment and Plan: ventricular rate is well controlled continue with home medications Home Eliquis resumed Continue to monitor ventricular rate to ensure that it does remain within normal limits (3) Essential (primary) hypertension: Code(s): I10 - Essential (primary) hypertension Status: Acute Assessment and Plan: Will resume patient's home medications and adjust medications accordingly for optimal blood pressure control. (4) Mixed hyperlipidemia: Code(s): E78.2 - Mixed hyperlipidemia Status: Acute Assessment and Plan: Cholesterol and LDL have been high over the past few visits Start on low dose lovestatin Educated about following up with PCP about the addition of the statin Time Spent With Patient Time with patient: 25 - 35 minutes Subjective Date/time seen: 11/28/21 07:00 Interval history: Date/Time 11/27/211939 Narrative: Cesar Luciano is a 66 year old male presented to the hospital for an elective left knee unicompartmental replacement. Patient underwent surgery today and is doing well. Patient is sitting up in chair and had been working with physical therapy when seen. Patient states at this point time he has no pain to his knee. Patient states he has a known history of hypertension, atrial fibrillation, left ventricular diastolic dysfunction, erectile dysfunction, and renal calculi. Patient states that he was unaware that he had atrial fibrillation until he was having preoperative work for the surgery. Patient states he did have a cardiac workup and was placed on Eliquis. Patient denied any chest discomfort, shortness of breath, lightheadedness, dizziness, syncopal, or near syncopal episodes prior to surgery or at this time. Date/Time 11/28/21 0700 Patient is doing well. He is going home and is ready for that transition. He denies any chest pain, shortness of breath, nausea, vomiting, or constipation. He is having some diarrhea that he stated was from the stool softener, otherwise no other complaints. Review of Systems Review of Systems: All systems reviewed & are unremarkable except as noted in HPI and below Exam Const: General: cooperative, healthy appearing, no acute distress, well developed, alert and awake Nutritional Appearance: well nourished Orientation/consciousness: oriented to person, oriented to place, oriented to time and patient oriented x3 Limitations: no limitations HENMT: Head: normal to inspection Ears: hearing grossly normal bilaterally General nose exam: Normal external nose present Mouth: Yes Normal oral and palatal mucosa present, Yes lip normal and Yes tongue normal Teeth and gingiva: abnormal tooth and associated gingiva and poor dentition Eyes: General: appearance normal, both eyes and all related structures Neck: Neck: normal visual inspection, full ROM, trachea midline and supple Chest: Chest palpation & inspection: normal inspection of the chest Resp: Effort & Inspection: normal respiratory effort and able to speak in complete sentences Auscultation: clear to auscultation bilaterally Cardio: Jugular venous distension: no JVD Rate: regular rate Rhythm: regular rhythm Heart sounds: S1 normal heart sound present and S2 normal heart sound present Peripheral pulses: Peripheral pulses 2+ throughout GI: Inspection: normal to inspection GI Palp: Yes Soft to palpation and No Tenderness to palpation present (G
--- NOTE | 2021-11-28 07:10 | PM.DS ---
DS: Admitting Diagnosis Discharge Date 11/28/2021 Admitting Diagnosis Left knee osteoarthritis DS: Discharge Diagnosis Discharge Diagnosis (1) History of left knee replacement: Code(s): Z96.652 - Presence of left artificial knee joint Status: Acute Assessment and Plan: 66-year-old male admitted for observation after left unicompartmental knee replacement by Dr. Arevalo. Overall doing well and is still relatively pain-free. He was informed that this may change as the nerve block wears off. He will be discharged home with Tylenol 650 mg extended release q.6 and oxycodone for breakthrough pain. He will resume taking Eliquis for DVT prophylaxis. Plan to see patient in 2 weeks in the office for wound check. He was informed to call our office with any further questions or concerns prior to that visit. DS: Summary Hospital Course Reason for hospitalization: Observation after outpatient procedure. Hospital Course: 66-year-old male admitted for observation after left unicompartmental knee replacement by Dr. Arevalo. Uneventful overnight stay. Surgical dressing is clean and dry. He tolerated therapy well and plan to see them again today. Discharge after therapy and follow up in our office in 2 weeks. Status at Discharge Functional status at discharge: uses cane/walker Overall status at discharge: patient is progressing back to baseline Time Spent with Patient Time attestation: Total time spent providing and/or coordinating discharge services: Time spent: Less than 30 minutes Exam Const: General: comfortable and no acute distress Eyes: General: appearance normal, both eyes and all related structures Resp: Effort & Inspection: normal respiratory effort GI: Inspection: non-distended GI Palp: No Tenderness to palpation present (GI) Skin: General skin exam: normal color Extrem: Other: Exam of the left knee reveals a clean and dry surgical dressing. He denies any numbness or tingling down the leg. He is able to move his foot and toes without difficulty. Calves negative. Neurovascular status unremarkable. Psych: Mental Status: mental status grossly normal Discharge Plan Discharge Patient Disposition: Home, Self-Care Discharge Instructions: 3 times daily for 20 minutes each time, reclining in bed with ice packs over the incision and a pillow underneath the calf of the affected leg, not under the knee. Your wound is glued so it is okay to get into the shower and get the wound wet in two days. Be sure to read through all the information that came from a my office and the hospital. Most of the answers you will need can be found that material. Call the office with any questions that you cannot find answers to, or concerns you may have. You have been restarted on your Eliquis. Take this as directed. Please call [facility] at as soon as possible to arrange for/verify your follow-up appointment to be seen in 2 weeks. Also, call the office with any orthopedic/surgical related questions prior to follow-up. Be sure to get up and move around several times daily but do not overdo it. Take the arthritis formula Tylenol 650 mg tablet on an 8 hour schedule. A good 8 hour schedule is: 6:00 a.m., 2:00 p.m., 10:00 p.m. you may take the prescribed pain medication along with the Tylenol; it is not to be taken instead of the Tylenol. I would like for you to take the Tylenol on a schedule for 2-3 weeks. He having given a prescription for Celebrex for 1 week. This is an NSAID that is acceptable to take with Eliquis. Use the laxative Senekot S twice daily for 2 weeks after discharge while taking the prescription pain medication. Use Miralax once daily for 2 weeks after discharge while taking the prescription pain medication. Patient Instructions: Apixaban (By mouth) Stand Alone Forms: General Discharge Instructions Follow-up/Referrals: Trey Arevalo MD [Physician] - Tigre Heard, EMETERIO [Advanced
[2021-11-28] MEDS: IRBESARTAN 150 MG TABLET 300 MG PO (07:59)
[2021-11-28] MEDS: CELECOXIB 200 MG CAPSULE PO (08:00)
[2021-11-28] MEDS: amLODIPine BESYLATE 5 MG TABLET PO (08:00)
[2021-11-28] MEDS: APIXABAN 5 MG TABLET PO (08:00)
[2021-11-28] MEDS: DULoxetine HCL 30 MG CAPSULE.DR PO (08:00)
[2021-11-28] MEDS: hydroCHLOROthiazide 12.5 MG CAPSULE PO (08:00)
[2021-11-28] MEDS: LOVASTATIN 20 MG TABLET PO (09:17)
--- NOTE | 2021-11-28 09:23 | WPDANESPN ---
Anes - Prog Note Post-Op Date/Time: 11/28/21 09:23 Cardiovascular status: normal Respiratory status: normal Airway patency: baseline Mental status: baseline Post-Op hydration status: normal Vital Signs: Last Vital Signs Temp 97.6 F 11/28/21 05:31 Pulse 100 11/28/21 05:31 Resp 16 11/28/21 05:31 BP 119/70 11/28/21 05:31 Pulse Ox 96 11/28/21 05:31 Pain Score (VAS): 10/09 I/O: Intake & Output 11/27/21 11/28/21 11/28/21 23:59 07:59 15:59 Intake Total 1990 350 240 Output Total 1100 600 Balance 890 -250 240 Post-procedural complaints: none Patient Feedback: Patient satisfied with anesthetic care.
[2021-11-28 09:56] VITALS: BP 126/79; PULSE 104; RESP 18; TEMP 36.6; O2SAT 95
== END 2021-11-28 10:48 | disposition home or self-care (01) ==
LOC: ANHSURGERY 09:32 → ANH2MED 10:48
PROVIDERS: PCP Family Medicine; Visit Provider Orthopaedic Surgery
PROC: (CPT 27446; principal; 2021-11-27 07:30)
DX: M17.12 Unilateral primary osteoarthritis, left knee (principal); I48.91 Unspecified atrial fibrillation; F41.8 Other specified anxiety disorders; I10 Essential (primary) hypertension; Z86.16 Personal history of COVID-19; L30.9 Dermatitis, unspecified; G47.10 Hypersomnia, unspecified; G47.00 Insomnia, unspecified; E78.2 Mixed hyperlipidemia; E55.9 Vitamin D deficiency, unspecified; E53.8 Deficiency of other specified B group vitamins; R35.1 Nocturia; Z90.49 Acquired absence of other specified parts of digestive tract; Z79.01 Long term (current) use of anticoagulants; G89.18 Other acute postprocedural pain; E66.9 Obesity, unspecified; Z68.34 Body mass index [BMI] 34.0-34.9, adult
CPT/HCPCS: 27446; 64447; 73560; 97110; 97116; 97161; 97165; 97530; 97535; A9270; C1713; C1776; J0171; J0690; J1100; J2001; J2250; J2270; J2370; J2405; J2704; J2795; J3010; J7030; J7120

== ENCOUNTER 2022-04-17 00:35 | Emergency (ER) | payer BC, SELFPAY ==
--- NOTE | ~2022-04-17 | XR_ITS ---
EXAMINATION: XR knee LT 2V DATE: 04/17/2022 01:31 INDICATION: Left knee pain and swelling TECHNIQUE: AP and lateral views of the left knee were obtained. COMPARISON: 01/24/2022 FINDINGS: Medial compartment left knee arthroplasty which remains in near-anatomic alignment. No fracture or pe riprosthetic lucency to suggest loosening or infection. Joint spaces in the lateral and patellofemora l compartment remain normal. Large left knee joint effusion. IMPRESSION: 1. Large left knee joint effusion. 2. Medial compartment left knee arthroplasty in near-anatomic alignment with no acute osseous abnorma lity. Reviewed, dictated and finalized at location A. IMPRESSION: 1. Large left knee joint effusion. 2. Medial compartment left knee arthroplasty in near-anatomic alignment with no acute osseous abnormality.
--- NOTE | 2022-04-17 00:44 | ECG_ITS ---
Measurements Intervals [place] Rate: 108 P: NC: 0 QRS: -21 QRSD: 93 T: -15 QT: 312 QTc: 419 Interpretive Statements ATRIAL FIBRILLATION WITH RAPID VENTRICULAR RESPONSE BORDERLINE R WAVE PROGRESSION, ANTERIOR LEADS BORDERLINE T WAVE ABNORMALITY- INFERIOR LEADS BASELINE ARTIFACT- I, II, III, AVR, AVL, AVF ABNORMAL ECG Electronically Signed On 04-17-2022 7:55:11 CDT by Wellington Celis D.O.
[2022-04-17 00:45] VITALS: BP 158/103; PULSE 117; RESP 18; TEMP 36.6; O2SAT 98
[2022-04-17 01:48] VITALS: BP 149/100; PULSE 79; RESP 16; O2SAT 96
--- NOTE | 2022-04-17 01:51 | PC.NURSE ---
Patient has a hx of high BP
[2022-04-17] MEDS: HYDROcodone/acetaminophen (*CRX) 5-325 MG TABLET 1 TAB PO (02:09)
--- NOTE | 2022-04-17 02:28 | ED.LOWEXIN ---
HPI - Extremity Injury (Lower) General Chief Complaint: Extremity Injury, Lower Stated Complaint: left knee infection Time Seen by Provider: 04/17/22 01:54 Source: patient Mode of arrival: wheelchair Limitations: no limitations History of Present Illness HPI Narrative: This is a 66 year old male that presents to the ER for left knee pain. Ongoing since yesterday. No recent injury or trauma. Reports history of partial knee replacement earlier this year. Reports pain and swelling the knee. Denies fever, erythema or warmth of the knee. Related Data Home Medications Medication Instructions Recorded Confirmed acetaminophen 500 mg tablet 1,000 mg PO QID PRN Pain 11/14/21 01/24/22 fluticasone propionate 50 1 spray intranasal BID PRN SINUS 12/25/21 01/24/22 mcg/actuation nasal CONGESTION spray,suspension Allergies Allergy/AdvReac Type Severity Reaction Status Date / Time No Known Allergies Allergy Verified 02/21/22 10:09 Review of Systems Review of Systems: CONSTITUTIONAL: Denies fever SKIN: Denies rash MUSCULOSKELETAL: Reports joint pain, and myalgia. NEUROLOGIC: Denies numbness All systems reviewed & are unremarkable except as noted in HPI and below PMFSH Past Medical History Medical History Acute sinusitis, unspecified Adult BMI 34.0-34.9 kg/sq m Arthritis of left knee Atrial fibrillation with normal ventricular rate (11/09/21) Echocardiogram on 11/17/2021 reveals ejection fraction 65-70% with intermediate diastolic dysfunction with small pericardial effusion and mild tricuspid valve regurgitation and mild mitral valve regurgitation BMI 36.0-36.9,adult Body mass index (bmi) 38.0-38.9, adult (03/09/19) BPH without obstruction/lower urinary tract symptoms PSA 2.3 on 11/09/2021 Chest pain Chronic anxiety Chronic depression Colon cancer screening Conjunctivitis COVID-19 (08/29/20) Eczema of lower extremity Essential (primary) hypertension Exposure to COVID-19 virus (~10/08/21) Fever Hypersomnia Hypertension Insomnia Male erectile dysfunction, unspecified Mixed hyperlipidemia total cholesterol 201, triglycerides 54, HDL 50, LDL 115 on 11/09/2021 Nocturia Obesity (BMI 30.0-34.9) Plantar fasciitis, bilateral Polyp of colon (07/14/21) colon polyp on 07/14/2021 Seasonal allergic rhinitis Vitamin B12 deficiency anemia, unspecified level greater than 1000 on 11/09/2021 Vitamin D deficiency, unspecified Surgical History Surgical History History of cholecystectomy History of left knee replacement Unicompartmental per Dr. 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 HEAD: Normocephalic, atraumatic. EYES: EOMI. EXTREMITIES: Mildly decreased active range of motion of the left knee due to pain. No erythema or warmth of the knee. Mild edema of the left knee. DP and PT pulse obtained via doppler SKIN: Warm, dry, no rash. NEURO: No focal deficits. Alert and oriented x3. PSYCH: Normal mood and affect Course Vital Signs Vital signs: Vital Signs Temperature 97.8 F 04/17/22 00:45 Pulse Rate 117 H 04/17/22 00:45 Respiratory Rate 18 04/17/22 00:45 Blood Pressure 158/103
[2022-04-17 02:48] LABS: Basophils Percent Auto 0.3 % (0.2-1.2); Eosinophils Absolute Auto 0.1 K/mm3 (0-0.3); Eosinophils Percent Auto 0.4 % (0-4.4); Hematocrit 45.6 % (42.0-52.0); Hemoglobin 14.6 g/dL (14.0-18.0); Immature Granulocyte Absolute 0.13 K/mm3 (0.00-0.031); Immature Granulocyte Percent A 0.9 % (0-0.5); Lymphocytes Absolute Auto 1.66 K/mm3 (0.9-3.2); Mean Corpuscular Hemoglobin 30.2 pg (26-34); Mean Corpuscular Volume 94.2 fl (80-100); Mean Platelet Volume 9.9 fl (7.4-10.4); Monocytes Absolute Auto 0.9 K/mm3 (0.1-0.6); Neutrophils Absolute Auto 12.3 K/mm3 (1.3-6.7); Neutrophils Percent Auto 81.4 % (45.5-73.1); Platelet Count Result 282 k/mm3 (150-375); Red Blood Count 4.84 M/mm3 (4.6-6.20); Red Cell Distribution Width 13.4 % (11.5-14.5); White Blood Count 15.1 K/mm3 (4.5-10.0)
[2022-04-17 03:01] LABS: Anion Gap 8 mmol/L (8-16); Blood Urea Nitrogen 21 mg/dL (9-20); CRP 0.5 mg/dL (<1.0); Calcium 9.5 mg/dL (8.4-10.2); Carbon Dioxide 26 mmol/L (22-30); Chloride 104 mmol/L (98-107); Estimated CRCL calculation 100 ml/min; Estimated Glomerular Filt Rate > 60; Glucose 136 mg/dL (65-110); Potassium 4.2 mmol/L (3.4-5.0); Sodium 138 mmol/L (137-145)
[2022-04-17 03:12] LABS: Erythrocyte Sedimentation Rate 18 mm/hr (0-20)
[2022-04-17 04:15] VITALS: BP 140/82; PULSE 92; RESP 18; O2SAT 98
== END 2022-04-17 04:17 | disposition home or self-care (01) ==
PROVIDERS: Physician Assistant; Emergency Provider Emergency Medicine; PCP Family Medicine
DX: M25.562 Pain in left knee (principal); I48.91 Unspecified atrial fibrillation; F41.9 Anxiety disorder, unspecified; F32.9 Major depressive disorder, single episode, unspecified; Z86.16 Personal history of COVID-19; I10 Essential (primary) hypertension
CPT/HCPCS: 36415; 73560; 80048; 85025; 85652; 86140; 93005; 99283; A9270

== ENCOUNTER 2022-04-17 13:34 | Outpatient (CLI) | payer BC, SELFPAY ==
--- NOTE | ~2022-04-17 | US_ITS ---
EXAMINATION: US knee asp inj w image LT DATE: 04/17/2022 15:10 INDICATION: Left knee pain. TECHNIQUE: The procedure including the risks, benefits, and alternatives was discussed with the patie nt. Risks discussed included bleeding and infection. The patient understood the risks and agreed to p roceed. The skin overlying the left knee was prepped and draped in usual sterile fashion. Anesthetic was administered with 1% lidocaine subcutaneously. 18-gauge spinal needle was inserted into the left knee joint under ultrasound guidance. Fluid was aspirated. The entry site was cleaned and dressed. There were no immediate complications. FINDINGS: Ultrasound images demonstrate the needle in the left knee joint. IMPRESSION: 1. Ultrasound-guided needle aspiration of the left knee joint yielding 7 mL dark red, opaque fluid. Reviewed, dictated and finalized at location A. IMPRESSION: 1. Ultrasound-guided needle aspiration of the left knee joint yielding 7 mL vinny k red, opaque fluid.
[2022-04-17 16:49] LABS: Color Synovial Fluid Red (Colorless); Source Synovial Fluid Synovial fluid
[2022-04-17 16:50] LABS: Appearance Synovial Fluid Bloody (Clear); Lymphocytes Synovial Fluid 17 %; Monocytes Synovial Fluid 9 %; Neutrophils Synovial Fluid 74 % (0-25)
[2022-04-17 16:56] LABS: Crystals Synovial Fluid None Seen (None Seen)
== END 2022-04-17 13:35 | disposition home or self-care (01) ==
PROVIDERS: PCP Family Medicine; Visit Provider Nurse Practitioner
DX: M25.562 Pain in left knee (principal)
CPT/HCPCS: 20611; 87070; 87075; 87147; 87181; 87186; 87205; 89051; 89060

== ENCOUNTER 2022-05-21 15:56 | Outpatient (CLI) | payer BC, SELFPAY ==
[2022-05-21 16:42] LABS: Alanine Aminotransferase 24 U/L (6-50); Albumin Level 4.6 g/dL (3.5-5.1); Alkaline Phosphatase 84 U/L (38-126); Anion Gap 9 mmol/L (8-16); Aspartate Amino Transferase 23 U/L (17-59); Bilirubin,Total 1.7 mg/dL (0.2-1.3); Blood Urea Nitrogen 14 mg/dL (9-20); Calcium 9.9 mg/dL (8.4-10.2); Carbon Dioxide 30 mmol/L (22-30); Chloride 98 mmol/L (98-107); Cholesterol 179 mg/dL (0-200); Estimated Glomerular Filt Rate > 60; Glucose 99 mg/dL (65-110); HDL Direct 58 mg/dL; Potassium 3.8 mmol/L (3.4-5.0); Sodium 137 mmol/L (137-145); Triglycerides 75 mg/dL (<150)
[2022-05-21 16:44] LABS: LDL Cholesterol Direct 88 mg/dL
[2022-05-21 17:07] LABS: Hemoglobin A1C 5.7 % (<5.7)
== END 2022-05-21 15:57 | disposition home or self-care (01) ==
PROVIDERS: PCP Family Medicine; Visit Provider Family Medicine
DX: E78.2 Mixed hyperlipidemia (principal); R73.01 Impaired fasting glucose
CPT/HCPCS: 36415; 80053; 80061; 83036

== ENCOUNTER → 2022-12-04 07:45 | Outpatient (CLI) | payer BC, SELFPAY ==
--- NOTE | ~2022-12-04 | MR_ITS ---
EXAMINATION: MR lumbar spine wo/w con DATE: 12/04/2022 09:19 INDICATION: Low back pain. Ataxia. Incontinence. TECHNIQUE: Magnetic resonance imaging (MRI) of the lumbar spine was performed without and with 20 mL MultiHance intravenous contrast. COMPARISON: Lumbar spine MRI 12/31/2016 FINDINGS: There are cysts in the kidneys measuring up to 5.0 cm on the left. Bone alignment is normal . Vertebral body heights and intervertebral disc heights are normal. S1 is a transitional segment. Th e distal spinal cord signal intensity is normal. The conus medullaris is at L1. The following disc le vels are specifically discussed: L1-L2: The disc is mildly bulging. There is mild bilateral facet joint osteoarthritis. There is mild bilateral neural foraminal stenosis. There is mild central canal stenosis. L2-L3: The disc is mildly bulging. There is moderate bilateral facet joint osteoarthritis. There is m ild bilateral neural foraminal stenosis. There is mild central canal stenosis. L3-L4: The disc is mildly bulging. There is moderate bilateral facet joint osteoarthritis. There is m ild bilateral neural foraminal stenosis. There is no central canal stenosis. L4-L5: The disc is bulging. There is mild right and moderate left facet joint osteoarthritis. There i s mild bilateral neural foraminal stenosis. There is mild central canal stenosis. L5-S1: The disc is bulging and has an annular fissure. There is severe bilateral facet joint osteoart hritis. There is moderate bilateral neural foraminal stenosis. There is moderate central canal stenos is. There is severe stenosis of the lateral recesses. IMPRESSION: 1. Moderate lower lumbar spondylosis with interval resolution of a right-sided synovial cyst at L5-S1 . Reviewed, dictated and finalized at location A. LER ASSEMBLER IMPRESSION: 1. Moderate lower lumbar spondylosis with interval resolution of a right-sided synovial cyst at L5-S1.
--- NOTE | ~2022-12-04 | MR_ITS ---
EXAMINATION: MR brain/brain stem wo/w con DATE: 12/04/2022 09:18 INDICATION: Ataxia. Lability of mood. Incontinence of bowel. TECHNIQUE: Magnetic resonance imaging (MRI) of the brain and brainstem was performed without and with 20 mL MultiHance intravenous contrast. COMPARISON: Brain MRI 11/30/2009 FINDINGS: There is no intracranial hemorrhage, acute infarction, or abnormal intracranial mass lesion . The ventricles are normal in size. There is mild mucosal thickening in the paranasal sinuses. There are likely changes of left ocular lens replacement surgery. The mastoid air cells are normal. IMPRESSION: 1. Normal brain. Reviewed, dictated and finalized at location A. ESS LINE OPERATOR IMPRESSION: 1. Normal brain.
== END ==
PROVIDERS: PCP Family Medicine; Visit Provider Family Medicine
DX: R27.0 Ataxia, unspecified (principal); R45.86 Emotional lability; R15.9 Full incontinence of feces; M54.50 Low back pain, unspecified; M47.816 Spondylosis without myelopathy or radiculopathy, lumbar region
CPT/HCPCS: 70553; 72158; A9577

== ENCOUNTER → 2022-12-27 17:36 | Outpatient (CLI) | payer BC, SELFPAY ==
--- NOTE | ~2022-12-27 | XR_ITS ---
EXAMINATION: XR chest 2V DATE: 12/27/2022 17:53 INDICATION: Acute bronchitis TECHNIQUE: PA and lateral views of the chest are obtained. COMPARISON: 11/27/2019 FINDINGS: The lung volumes are low. There are minimal airspace opacities of the lung bases. No pleura l effusion or pneumothorax. The cardiomediastinal silhouette is normal. There is moderate thoracic sp ondylosis. Surgical clips in the right upper quadrant are likely from prior cholecystectomy. IMPRESSION: 1. Bibasilar airspace opacities, consistent with atelectasis versus pneumonia. Reviewed, dictated and finalized at location F.
== END ==
PROVIDERS: PCP Family Medicine; Visit Provider Family Medicine
DX: J20.9 Acute bronchitis, unspecified (principal); R91.8 Other nonspecific abnormal finding of lung field
CPT/HCPCS: 71046

== ENCOUNTER 2024-01-09 12:46 | Emergency (ER) | payer MEDICARE, SELFPAY ==
[2024-01-09 12:46] VITALS: BP 168/102; PULSE 93; RESP 14; TEMP 37.1; O2SAT 97
--- NOTE | 2024-01-09 12:51 | ECG_ITS ---
SEE SCANNED COPY FOR CONFIRMED REPORT MTDD
[2024-01-09] MEDS: ONDANSETRON INJ 4 MG/2 ML VIAL IV PUSH (13:27)
[2024-01-09] MEDS: SODIUM CHLORIDE 0.9% IV 500 ML 999 ML IV CONT (13:27)
[2024-01-09] MEDS: MECLIZINE HCL 25 MG TABLET PO (13:28)
--- NOTE | 2024-01-09 13:30 | PC.NURSE ---
Spoke with pts who states the pt was recently admitted to [facility] for flu A&B, pneumonia, and sepsis. The spouse states the pt was on a ventilator 14-19 days.
[2024-01-09 13:32] VITALS: BP 147/101; PULSE 82; RESP 25; O2SAT 99
[2024-01-09 13:34] LABS: Basophils Percent Auto 0.3 % (0.2-1.2); Eosinophils Percent Auto 0.4 % (0-4.4); Hematocrit 44.4 % (42.0-52.0); Hemoglobin 14.3 g/dL (14.0-18.0); Immature Granulocyte Absolute 0.03 K/mm3 (0.00-0.031); Immature Granulocyte Percent A 0.4 % (0-0.5); Lymphocytes Percent Auto 12.1 % (18.3-44.2); Mean Corpuscular HGB Conc 32.2 g/dl (32-36); Mean Corpuscular Hemoglobin 29.8 pg (26-34); Mean Corpuscular Volume 92.5 fl (80-100); Mean Platelet Volume 10.4 fl (7.4-10.4); Monocytes Absolute Auto 0.4 K/mm3 (0.1-0.6); Monocytes Percent Auto 5.4 % (2.6-8.5); Neutrophils Percent Auto 81.4 % (45.5-73.1); Platelet Count Result 239 k/mm3 (150-375); Red Cell Distribution Width 14.4 % (11.5-14.5); White Blood Count 7.4 K/mm3 (4.5-10.0)
[2024-01-09 13:48] LABS: Alanine Aminotransferase 18 U/L (6-50); Albumin Level 4.5 g/dL (3.5-5.1); Alkaline Phosphatase 82 U/L (38-126); Anion Gap 8 mmol/L (4-12); Aspartate Amino Transferase 24 U/L (17-59); Bilirubin,Total 1.6 mg/dL (0.2-1.3); Blood Urea Nitrogen 11 mg/dL (9-20); Calcium 9.7 mg/dL (8.4-10.2); Carbon Dioxide 24 mmol/L (22-30); Chloride 108 mmol/L (98-107); Estimated Glomerular Filt Rate > 60; Glucose 122 mg/dL (65-110); Potassium 3.6 mmol/L (3.4-5.0); Sodium 140 mmol/L (137-145)
--- NOTE | 2024-01-09 14:14 | ED.GENADULT ---
HPI - General Adult General Chief complaint: Dizziness Stated complaint: dizzy Time Seen by Provider: 01/09/24 12:56 History of Present Illness HPI narrative: Patient is a 68-year-old male who presents ER with dizziness. Reports he had 1 brief episode yesterday. He has returned twice a day. Spinning dizziness associated with nausea and fullness in the epigastrium. He has had this previously. No chest pain or chest pressure. No difficulty with eating or drinking. Ongoing fevers/chills / sweats or nurse spoke with patient's . believes he may have some anxiety because this is 1st day at home. She has gone back to work and the other children or also working. Related Data Home Medications Medication Instructions Recorded Confirmed acetaminophen 500 mg tablet 1,000 mg PO QID PRN Pain 11/14/21 08/27/23 fluticasone propionate 50 1 spray intranasal BID PRN SINUS 12/25/21 08/27/23 mcg/actuation nasal CONGESTION spray,suspension Allergies Allergy/AdvReac Type Severity Reaction Status Date / Time quetiapine [From Seroquel] AdvReac Unknown Fainting Verified 10/17/23 08:46 Review of Systems Review of Systems: All systems reviewed & are unremarkable except as noted in HPI and below Constitutional: Constitutional: Reports no additional constitutional complaints ENT: Reports dizziness, Denies nasal congestion and Denies sore throat Cardiovascular: Cardiovascular: Reports no additional cardiovascular complaints Respiratory: Respiratory: Reports no additional respiratory complaints Gastrointestinal: Gastrointestinal: Reports no additional gastrointestinal complaints [facility] Past Medical History Medical History (Updated 01/09/24 @ 15:37 by Jr López MD) Acute bronchitis Chest x-ray 12/27/2022 with basilar atelectasis or pneumonia. Acute sinusitis, unspecified Adult BMI 34.0-34.9 kg/sq m Arthritis of left knee At high risk for falls fell 11/13/2022 with hematoma left hip. Ataxia (~11/19/22) MRI of the brain 12/04/2022 was unremarkable except for the inflammation of the sinuses. MRI of the lumbar spine revealed moderate spondylosis with severe stenosis of the lateral recess bilaterally at L5-S1. Atrial fibrillation with normal ventricular rate (11/09/21) Echocardiogram on 11/17/2021 reveals ejection fraction 65-70% with intermediate diastolic dysfunction with small pericardial effusion and mild tricuspid valve regurgitation and mild mitral valve regurgitation BMI 36.0-36.9,adult BMI 37.0-37.9, adult Body mass index (bmi) 38.0-38.9, adult (03/09/19) BPH without obstruction/lower urinary tract symptoms PSA 2.3 on 11/09/2021. PSA 2.1 on 11/15/2022. Chest pain Chronic anxiety (~02/09/14) Chronic depression (~02/09/14) Colon cancer screening Conjunctivitis COVID-19 (08/29/20) Dry eye syndrome of right eye dry eye syndrome with chronic inflammation right eye Eczema of lower extremity Essential (primary) hypertension Essential tremor (~11/22/22) essential tremor right upper extremity Exposure to COVID-19 virus (~10/08/21) Fever Hypersomnia Hypertension Influenza A (~10/16/23) Insomnia Irritable bowel syndrome with diarrhea Male erectile dysfunction, unspecified Male erectile dysfunction, unspecified Total testosterone 275 with free testosterone low at 6.2 on 11/15/2022. Total testosterone normal at 504.6 with free testosterone 4.3. Mixed hyperlipidemia total cholesterol 201, triglycerides 54, HDL 50, LDL 115 on 11/09/2021. Total cholesterol 168, triglycerides 88, HDL 55, LDL 97 on 11/15/2022. Nocturia Obesity (BMI 30-39.9) Obesity (BMI 30.0-34.9) Plantar fasciitis, bilateral Pneumonia, community acquired (~10/16/23) Polyp of colon (07/14/21) colon polyp on 07/14/2021 Ptosis of eyelid, bilateral (~2021) treated surgically Seasonal allergic rhinitis Vitamin B12 deficiency anemia, unspecified level greater than 1000 on 11/09/2021. Level normal at 469 with folic acid 9.5 and hemoglobin 13.0 o
[2024-01-09 14:32] VITALS: BP 156/110; PULSE 100; RESP 22; O2SAT 97
[2024-01-09 14:56] VITALS: BP 165/105; PULSE 92; RESP 22; O2SAT 95
[2024-01-09 15:15] VITALS: BP 156/87; PULSE 85; RESP 19; O2SAT 94
== END 2024-01-09 15:51 | disposition home or self-care (01) ==
PROVIDERS: Emergency Provider Emergency Medicine; PCP Family Medicine
DX: R42 Dizziness and giddiness (principal); H61.23 Impacted cerumen, bilateral; I48.91 Unspecified atrial fibrillation; I10 Essential (primary) hypertension; E78.2 Mixed hyperlipidemia; E66.9 Obesity, unspecified; E55.9 Vitamin D deficiency, unspecified; N40.0 Benign prostatic hyperplasia without lower urinary tract symptoms; D51.9 Vitamin B12 deficiency anemia, unspecified; H04.121 Dry eye syndrome of right lacrimal gland; K58.0 Irritable bowel syndrome with diarrhea; M17.12 Unilateral primary osteoarthritis, left knee; F41.9 Anxiety disorder, unspecified; F32.A Depression, unspecified; Z96.652 Presence of left artificial knee joint; Z86.16 Personal history of COVID-19; Z87.01 Personal history of pneumonia (recurrent); Z86.010 Personal history of colon polyps; Z90.49 Acquired absence of other specified parts of digestive tract
CPT/HCPCS: 36415; 69210; 80053; 85025; 93005; 96361; 96374; 99284; A9270; J2405; J7040

== ENCOUNTER 2024-08-17 18:03 | Emergency (ER) | payer MEDICARE, SELFPAY ==
[2024-08-17] VITALS (9 sets, daily range): BP systolic 132–160; BP diastolic 81–90; PULSE 86–102; RESP 18–34; TEMP 36.6; O2SAT 95–96
--- NOTE | ~2024-08-17 | CT_ITS ---
EXAMINATION:CT diagnostic chest wo con DATE: 08/17/2024 22:30 INDICATION: Dyspnea. Cough. TECHNIQUE: Computed tomography (CT) of the chest was performed without intravenous contrast. Automate d exposure control and iterative reconstruction technique were employed. The dose-length product (DLP ) was 553.22 mGy-cm. COMPARISON: Chest CT 08/26/2013 FINDINGS: The lung volumes are small with relative elevation of right hemidiaphragm. The lungs demons trate mild atelectasis. No pleural effusion. Cardiomegaly is noted. There are coronary artery calcifi cations. No pericardial effusion. Calcified right hilar lymph nodes are consistent with old granuloma tous disease. There are changes of cholecystectomy. There are cysts in the kidneys measuring up to 4. 8 cm on the right. There is a 4 mm stone in right kidney. There is severe cervical spondylosis and mo derate thoracic spondylosis. IMPRESSION: 1. Small lung volumes with mild atelectasis. 2. Cardiomegaly. Reviewed, dictated and finalized at location A. OR SALES OPERATIONS ANALYST
--- NOTE | ~2024-08-17 | XR_ITS ---
EXAMINATION: XR chest 1V portable DATE: 08/17/2024 19:08 INDICATION: Weakness. TECHNIQUE: A single frontal view of the chest was obtained. COMPARISON: Chest 2 views 12/27/2022 FINDINGS: The lung volumes are small with chronic relative elevation of right hemidiaphragm. There is mild atelectasis at the lung bases. No pleural effusion or pneumothorax. The heart size is normal. S urgical clips in the right upper quadrant are likely from cholecystectomy. IMPRESSION: 1. Small lung volumes with mild atelectasis at the lung bases. Reviewed, dictated and finalized at location A. OOD LAYUP LINE BACK FEEDER
--- NOTE | ~2024-08-17 | CT_ITS ---
EXAMINATION: CT brain wo con DATE: 08/17/2024 19:40 INDICATION: Weakness. TECHNIQUE: Computed tomography (CT) of the head was performed without intravenous contrast. The mA wa s adjusted according to patient size. Iterative reconstruction technique was employed. The dose-lengt h product was 681.00 mGy-cm. COMPARISON: Head CT 01/15/2019 FINDINGS: There are scattered areas of low attenuation in the cerebral white matter, which is within normal limits for the patient's age. There is no intracranial hemorrhage, acute infarction, or abnor mal intracranial mass lesion. The ventricles are normal in size. There are likely changes of ocular l ens replacement surgeries. There is mild mucosal thickening in the ethmoid sinuses. The mastoid air c ells are normal. IMPRESSION: 1. Normal aging brain. Reviewed, dictated and finalized at location A. ING/POLISHING OPERATOR IMPRESSION: 1. Normal aging brain.
--- NOTE | 2024-08-17 18:15 | ECG_ITS ---
Test Date: 2024-08-17 18:17:03 Measurements Intervals [place] Rate: 118 P: 0 FL: 0 QRS: -20 QRSD: 96 T: -13 QT: 347 QTc: 487 Interpretive Statements ATRIAL FIBRILLATION WITH RAPID VENTRICULAR RESPONSE DELAYED PRECORDIAL R/S TRANSITION INFERIOR INFARCT, AGE INDETERMINATE BORDERLINE ST-T WAVE ABNORMALITY- ANTEROLAT/HIGH LAT LEADS BASELINE ARTIFACT- I, II, III, AVR, AVL, AVF ABNORMAL ECG No previous ECG available for comparison Electronically Signed On 08-17-2024 18:53:22 DELIVERY PROFESSIONAL by Wellington Celis D.O.
[2024-08-17 19:00] LABS: Base Excess ABG 0.5 mEq/l (+/-2.0); Fractional Inspired Oxygen 21 %; HCO3 ABG 24.3 mEq/l (22.0-26.0); Oxygen Content ABG 19.9 %vol (16.0-22.0); Oxygen Saturation ABG 92.2 % (95.0-100.0); Oxyhemoglobin 90.1 % THb (90.0-100.0); PCO2 ABG 36.8 mmHg (35.0-45.0); PO2 ABG 60.7 mmHg (80.0-100.0); PO2 FiO2 Ratio Arterial Blood 2.89 %; Total Hemoglobin 15.7 g/dL (12.0-18.0); pH ABG 7.437 (7.350-7.450)
[2024-08-17 19:01] LABS: Modified Allen's Test Pass; Site Drawn RIGHT RADIAL
[2024-08-17 19:30] LABS: Basophils Percent Auto 0.2 % (0.2-1.2); Eosinophils Percent Auto 0.1 % (0-4.4); Hematocrit 46.8 % (42.0-52.0); Hemoglobin 15.6 g/dL (14.0-18.0); Immature Granulocyte Absolute 0.04 K/mm3 (0.00-0.031); Immature Granulocyte Percent A 0.3 % (0-0.5); Lymphocytes Absolute Auto 0.33 K/mm3 (0.9-3.2); Lymphocytes Percent Auto 2.8 % (18.3-44.2); Mean Corpuscular HGB Conc 33.3 g/dl (32-36); Mean Corpuscular Hemoglobin 30.6 pg (26-34); Mean Corpuscular Volume 91.8 fl (80-100); Mean Platelet Volume 10.7 fl (7.4-10.4); Monocytes Absolute Auto 0.6 K/mm3 (0.1-0.6); Monocytes Percent Auto 4.8 % (2.6-8.5); Neutrophils Absolute Auto 10.8 K/mm3 (1.3-6.7); Neutrophils Percent Auto 91.8 % (45.5-73.1); Platelet Count Result 202 k/mm3 (150-375); Red Cell Distribution Width 14.1 % (11.5-14.5); White Blood Count 11.8 K/mm3 (4.5-10.0)
[2024-08-17 19:39] LABS: Add Urine Microscopic? YES; Appearance Urine Clear (Clear); Bacteria Urine None Seen /hpf; Bilirubin Urine Negative (Negative); Blood Urine Negative (Negative); Color Urine Yellow (Yellow); Glucose Urine UA Negative (Negative); Ketones Urine Trace mg/dL (Negative); Leukocyte Esterase Ur Negative LEU/UL (Negative); Nitrate Urine Negative (Negative); Non Pathogenic Casts 0-2; Protein Urine 1+ mg/dL (Negative); RBC Urine 0-2 /hpf (0-2); Specific Grav Ur 1.027 (1.001-1.035); Squamous Epithelial Cell Urine None Seen /hpf (Few); WBC Urine 0-5 /hpf (0-3)
[2024-08-17 19:40] LABS: INR 1.1; Prothrombin Time 14.6 Seconds (11.1-14.7)
[2024-08-17 19:41] LABS: Partial Thromboplastin Time 23.2 Seconds (22.3-36.8)
[2024-08-17 19:43] LABS: Alanine Aminotransferase 27 U/L (6-50); Albumin Level 4.6 g/dL (3.5-5.1); Alkaline Phosphatase 95 U/L (38-126); Anion Gap 7 mmol/L (4-12); Aspartate Amino Transferase 26 U/L (17-59); Bilirubin,Total 2.3 mg/dL (0.2-1.3); Blood Urea Nitrogen 17 mg/dL (9-20); Calcium 9.7 mg/dL (8.4-10.2); Carbon Dioxide 28 mmol/L (22-30); Chloride 104 mmol/L (98-107); Estimated CRCL calculation 85 ml/min; Estimated Glomerular Filt Rate > 60; Glucose 128 mg/dL (65-110); Lactic Acid Reflex 1.6 mmol/L (0.7-2.0); Lipase 271 U/L (23-300); Phosphorus 2.3 mg/dL (2.5-4.5); Potassium 3.8 mmol/L (3.4-5.0); Sodium 139 mmol/L (137-145)
[2024-08-17 19:54] LABS: Troponin I < 0.012 ng/mL (0.000-0.034)
[2024-08-17 19:58] LABS: NT Pro B Type Natriuretic Pept 416 pg/mL (19.9-100); Troponin I < 0.012 ng/mL (0.000-0.034)
--- NOTE | 2024-08-17 19:59 | PC.NURSE ---
Pt states he has been feeling weak but at this time he has no complaints of pain
[2024-08-17 21:49] LABS: Influenza A QL RT-PCR Negative (Negative); Influenza B QL RT-PCR Negative (Negative); RSV RNA, RT-PCR Negative (Negative); SARS-CoV-2 RNA PCR Negative (Negative)
--- NOTE | 2024-08-17 21:58 | ED.GENADULT ---
HPI - General Adult General Chief complaint: Unspecified <Francesco Washington MD - Last Filed: 08/17/24 22:23> Stated complaint: dizzy, <Francesco Washington MD - Last Filed: 08/17/24 22:23> Time Seen by Provider: 08/17/24 18:09 <Francesco Washington MD - Last Filed: 08/17/24 22:23> History of Present Illness HPI narrative: This is a 69-year-old male presenting ED with chief generalized weakness. Patient was supposed to have a corneal transplant this morning but when he arrived at the operative theater they sent him home as he was having a coughing/gagging. When he got home he had multiple episodes of nausea vomiting and diarrhea. He then began to feel weak throughout the day and had an episode of dizziness. @5:00p.m. he tried to stand up and became dizzy and slid to the floor. He did not strike his head persisting injuries. Patient says he has a mild headache. He denies fevers chills sore throat chest pain difficulty breathing abdominal pain or urinary symptoms. Denies recent antibiotics or travel history. Patient is a poor historian. <Francesco Washington MD - Last Filed: 08/17/24 22:23> Related Data Home medications: Home Medications Medication Instructions Recorded Confirmed acetaminophen 500 mg tablet 1,000 mg PO QID PRN Pain 11/14/21 02/05/24 fluticasone propionate 50 1 spray intranasal BID PRN SINUS 12/25/21 02/05/24 mcg/actuation nasal CONGESTION spray,suspension <Francesco Washington MD - Last Filed: 08/17/24 22:23> Allergies/adverse reactions: Allergies Allergy/AdvReac Type Severity Reaction Status Date / Time quetiapine [From Seroquel] AdvReac Unknown Fainting Verified 10/17/23 08:46 <Francesco Washington MD - Last Filed: 08/17/24 22:23> PMFSH Past Medical History Medical History: Medical History Acute bronchitis Chest x-ray 12/27/2022 with basilar atelectasis or pneumonia. Acute sinusitis, unspecified Adult BMI 34.0-34.9 kg/sq m Arthritis of left knee At high risk for falls fell 11/13/2022 with hematoma left hip. Ataxia (~11/19/22) MRI of the brain 12/04/2022 was unremarkable except for the inflammation of the sinuses. MRI of the lumbar spine revealed moderate spondylosis with severe stenosis of the lateral recess bilaterally at L5-S1. Atrial fibrillation with normal ventricular rate (11/09/21) Echocardiogram on 11/17/2021 reveals ejection fraction 65-70% with intermediate diastolic dysfunction with small pericardial effusion and mild tricuspid valve regurgitation and mild mitral valve regurgitation BMI 33.0-33.9,adult BMI 36.0-36.9,adult BMI 37.0-37.9, adult Body mass index (bmi) 38.0-38.9, adult (03/09/19) BPH without obstruction/lower urinary tract symptoms PSA 2.3 on 11/09/2021. PSA 2.1 on 11/15/2022. Chest pain Chronic anxiety (~02/09/14) Chronic depression (~02/09/14) Colon cancer screening Conjunctivitis COVID-19 (08/29/20) Dry eye syndrome of right eye dry eye syndrome with chronic inflammation right eye Eczema of lower extremity Essential (primary) hypertension Essential tremor (~11/22/22) essential tremor right upper extremity Exposure to COVID-19 virus (~10/08/21) Fever Hypersomnia Hypertension Influenza A (~10/16/23) Insomnia Irritable bowel syndrome with diarrhea Male erectile dysfunction, unspecified Male erectile dysfunction, unspecified Total testosterone 275 with free testosterone low at 6.2 on 11/15/2022. Total testosterone normal at 504.6 with free testosterone 4.3. Mixed hyperlipidemia total cholesterol 201, triglycerides 54, HDL 50, LDL 115 on 11/09/2021. Total cholesterol 168, triglycerides 88, HDL 55, LDL 97 on 11/15/2022. Nocturia Obesity (BMI 30-39.9) Obesity (BMI 30.0-34.9) Plantar fasciitis, bilateral Pneumonia, community acquired (~10/16/23) Polyp of colon (07/14/21) colon polyp on 07/14/2021 Ptosis of eyelid, bilateral (~2021) treated surgically Seasonal allergic rhinitis Vitamin B12 deficiency anemia, unspecified level greater than 1000 on 11/09/2021. Level normal at 469 with folic acid 9.5 and hemoglobin 13.0 on 11/15/2022. Vitamin D deficiency, unspecified <Francesco Washington MD - Last Filed: 08/17/24 22:23> Surgical History Surgical History: Surgical History History of cholecystectomy History of left knee replacement Unicompartmental 11/27/2021 <Francesco Washington MD - Last Filed: 08/17/24 22:23> Family History Family History: Family History Mother Hypertension, Onset Age: 84 Sibling Hypertension Other Malignant neoplasm of prostate <Francesco Washington MD - Last Filed: 08/17/24 22:23> Social History Social History: Social History Smoking status: Never smoker Second hand tobacco smoke exposure: No Alcohol intake: current Drinks per week: 3 Alcohol use details: STATES MAYBE 6/MONTH Substance use: never Substance use type: does not use Do You Feel Safe in your Home?: Yes Lack of Transportation: No Lack of Food: Never True Current Housing: Decline to Answer Concerned About Future Housing: No Difficulty Paying Gas/Electric Bills: No Difficulty Paying for Meds: No Currently Unemployed: No Education: High School Diploma/GED Difficulty w/ Childcare or Family Care: No Living arrangements: with family Occupation/Education: retired 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 Patient appears chronically unwell Head: atraumatic. 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 Moving 4/4 extremities SKIN:: Warm, dry. Normal color PSYCHIATRIC: Normal affect <Francesco Washington MD - Last Filed: 08/17/24 22:23> Course Vital Signs Vital signs: Vital Signs Temperature 97.9 F 08/17/24 18:04 Pulse Rate 102 H 08/17/24 18:04 Respiratory Rate 18 08/17/24 18:04 Blood Pressure 160/90 H 08/17/24 18:04 Pulse Oximetry 96 08/17/24 18:04 Oxygen Delivery Room Air 08/17/24 18:04 Temperature 97.9 F 08/17/24 18:04 Pulse Rate 84 08/18/24 01:24 Respiratory Rate 18 08/18/24 01:24 Blood Pressure 154/81 H 08/18/24 01:24 Pulse Oximetry 94 08/18/24 01:24 Oxygen Delivery Room Air 08/17/24 18:04 <Francesco Washington MD - Last Filed: 08/17/24 22:23> Vital Signs Temperature 97.9 F 08/17/24 18:04 Pulse Rate 102 H 08/17/24 18:04 Respiratory Rate 18 08/17/24 18:04 Blood Pressure 160/90 H 08/17/24 18:04 Pulse Oximetry 96 08/17/24 18:04 Oxygen Delivery Room Air 08/17/24 18:04 Temperature 97.9 F 08/17/24 18:04 Pulse Rate 84 08/18/24 01:24 Respiratory Rate 18 08/18/24 01:24 Blood Pressure 154/81 H 08/18/24 01:24 Pulse Oximetry 94 08/18/24 01:24 Oxygen Delivery Room Air 08/17/24 18:04 <Carlos Oliva MD - Last Filed: 08/18/24 07:26> Medical Decision Making MDM Narrative Medical decision making narrative: -Course: 69-year-old male presenting with nausea vomiting and diarrhea. Broad workup ordered which was largely unremarkable. Initially the patient was having AFib with RVR and his HR improved with rehydration. The AFib w/ rvr is more likely due to dehydration than a primary cardiac issue. Patient is given 2 L of normal saline. Patient has been signed out to the oncoming physician pending CT chest, rehydration ambulation test. -DDX includes but is not limited to: Dehydration, gastroenteritis, pneumonia UTI sepsis AFib with RVR -Co-morbidities complicating care: AFib, hypertension her depression, high cholesterol, BPH -Hx from independent Sources: at bedside -Independent interpretation of studies: white count 11.8, hemoglobin 15.6 metabolic panel within normal limits, lactic normal bili 2.3 troponin <.012, BNP for 410 urine without signs of infection, concentrated viral swabs negative CT head negative chest x-ray unremarkable Independent EKG interpretation: Rhythm [afib], Rate [118], [place] -[normal], [place] -[normal], QRS [narrow], QTC [normal], T waves -[negative for concerning inversions], ST Segments - [Negative for concerning elevations] Final interpretations: afib w/ rvr -Interventions: 2 L normal saline -Shared decision making / Disposition:Signed out to oncoming physician. <Francesco Washington MD - Last Filed: 08/17/24 22:23> -Course: 69-year-old male presenting with nausea vomiting and diarrhea. Broad workup ordered which was largely unremarkable. Initially the patient was having AFib with RVR and his HR improved with rehydration. The AFib w/ rvr is more likely due to dehydration than a primary cardiac issue. Patient is given 2 L of normal saline. Patient has been signed out to the oncoming physician pending CT chest, rehydration ambulation test. -DDX includes but is not limited to: Dehydration, gastroenteritis, pneumonia UTI sepsis AFib with RVR -Co-morbidities complicating care: AFib, hypertension her depression, high cholesterol, BPH -Hx from independent Sources: at bedside -Independent interpretation of studies: white count 11.8, hemoglobin 15.6 metabolic panel within normal limits, lactic normal bili 2.3 troponin <.012, BNP for 410 urine without signs of infection, concentrated viral swabs negative CT head negative chest x-ray unremarkable Independent EKG interpretation: Rhythm afib, Rate 118, [place] -normal, [place] -normal, QRS narrow, QTC normal, T waves -negative for concerning inversions, ST Segments - Negative for concerning elevations Final interpretations: afib w/ rvr -Interventions: 2 L normal saline -Shared decision making / Disposition: Signed out to oncoming physician. Pj: Patient was signed out to me pending CT chest without contrast. CT was obtained revealing small lung volumes with mild atelectasis, cardiomegaly, no evidence of pneumonia. At this time, I personally performed an ambulatory trial with the patient. Patient was able to walk without any bankruptcy assistant, however, he did appear to be weak. I did recommend inpatient admission for PT/OT, however, patient refused stating that he would like to follow up with his doctors as an outpatient and do physical therapy as an outpatient. present at bedside was also updated regarding patient's results. She states that his insurance in the past has sent some physical therapy to the house. Patient was instructed to follow up with his family doctor within next 3-5 days and return to the emergency department if any new or worsening symptoms develop. He was discharged in stable condition. <Carlos Oliva MD - Last Filed: 08/18/24 07:26> Vital Signs Vital Signs: Vital Signs Temperature 97.9 F 08/17/24 18:04 Pulse Rate 102 H 08/17/24 18:04 Respiratory Rate 18 08/17/24 18:04 Blood Pressure 160/90 H 08/17/24 18:04 Pulse Oximetry 96 08/17/24 18:04 Oxygen Delivery Room Air 08/17/24 18:04 Temperature 97.9 F 08/17/24 18:04 Pulse Rate 84 08/18/24 01:24 Respiratory Rate 18 08/18/24 01:24 Blood Pressure 154/81 H 08/18/24 01:24 Pulse Oximetry 94 08/18/24 01:24 Oxygen Delivery Room Air 08/17/24 18:04 <Francesco Washington MD - Last Filed: 08/17/24 22:23> Vital Signs Temperature 97.9 F 08/17/24 18:04 Pulse Rate 102 H 08/17/24 18:04 Respiratory Rate 18 08/17/24 18:04 Blood Pressure 160/90 H 08/17/24 18:04 Pulse Oximetry 96 08/17/24 18:04 Oxygen Delivery Room Air 08/17/24 18:04 Temperature 97.9 F 08/17/24 18:04 Pulse Rate 84 08/18/24 01:24 Respiratory Rate 18 08/18/24 01:24 Blood Pressure 154/81 H 08/18/24 01:24 Pulse Oximetry 94 08/18/24 01:24 Oxygen Delivery Room Air 08/17/24 18:04 <Carlos Oliva MD - Last Filed: 08/18/24 07:26> Lab Data Result diagrams: 08/17/24 19:21 08/17/24 19:21 <Francesco Washington MD - Last Filed: 08/17/24 22:23> Labs: Lab Results 08/17/24 08/17/24 Range/Units 19:21 19:21 WBC 11.8 H (4.5-10.0) K/mm3 RBC 5.10 (4.6-6.20) M/mm3 Hgb 15.6 (14.0-18.0) g/dL Hct 46.8 (42.0-52.0) % MCV 91.8 (80-100) fl MCH 30.6 (26-34) pg MCHC 33.3 (32-36) g/dl RDW 14.1 (11.5-14.5) % Plt Count 202 (150-375) k/mm3 MPV 10.7 H (7.4-10.4) fl Immature Gran % (Auto) 0.3 (0-0.5) % Neut % (Auto) 91.8 H (45.5-73.1) % Lymph % (Auto) 2.8 L (18.3-44.2) % [place] % (Auto) 4.8 (2.6-8.5) % Eos % (Auto) 0.1 (0-4.4) % Baso % (Auto) 0.2 (0.2-1.2) % Lymph # (Auto) 0.33 L (0.9-3.2) K/mm3 [place] # (Auto) 0.6 (0.1-0.6) K/mm3 Eos # (Auto) 0.0 (0-0.3) K/mm3 Baso # (Auto) 0.0 (0.0-0.1) K/mm3 Abs Immat Gran (auto) 0.04 H (0.00-0.031) K/mm3 Absolute Neuts (auto) 10.8 H (1.3-6.7) K/mm3 Absolute Nucleated RBC 0.000 (0.0-0.012) K/mm3 Nucleated RBC % 0.0 (0.0-0.2) % PT 14.6 (11.1-14.7) Seconds INR 1.1 APTT 23.2 (22.3-36.8) Seconds Sodium 139 (137-145) mmol/L Potassium 3.8 (3.4-5.0) mmol/L Chloride 104 (98-107) mmol/L Carbon Dioxide 28 (22-30) mmol/L Anion Gap 7 (4-12) mmol/L BUN 17 (9-20) mg/dL Creatinine 0.80 (0.7-1.3) mg/dL Estim Creat Clear Calc 85 ml/min Estimated GFR > 60 (59 - ) Glucose 128 H (65-110) mg/dL Lactic Acid 1.6 (0.7-2.0) mmol/L Calcium 9.7 (8.4-10.2) mg/dL Phosphorus 2.3 L (2.5-4.5) mg/dL Magnesium 2.0 (1.6-2.3) mg/dL Total Bilirubin 2.3 H (0.2-1.3) mg/dL AST 26 (17-59) U/L ALT 27 (6-50) U/L Alkaline Phosphatase 95 (38-126) U/L Troponin I < 0.012 < 0.012 (0.000-0.034) ng/mL NT-Pro-B Natriuret Pep 416 H (19.9-100) pg/mL Total Protein 8.0 (6.3-8.2) g/dL Albumin 4.6 (3.5-5.1) g/dL Lipase 271 (23-300) U/L TSH (Reflex) 0.740 (0.465-4.68) uIU/mL Urine Color Yellow (Yellow) Urine Appearance Clear (Clear) Urine pH 6.0 (5.0-9.0) Ur Specific [place] 1.027 (1.001-1.035) Urine Protein 1+ H (Negative) mg/dL Urine Glucose (UA) Negative (Negative) mg/dL Urine Ketones Trace H (Negative) mg/dL Ur Blood (Man) Negative (Negative) Urine Nitrate Negative (Negative) Urine Bilirubin Negative (Negative) Urine Urobilinogen 1.0 (<2.0) mg/dL Leukocyte Esterase Rfl Negative (Negative) LUCINA/UL Urine RBC 0-2 (0-2) /hpf Urine WBC 0-5 (0-3) /hpf Ur Squamous Epith Cells None seen (Few) /hpf Urine Bacteria None seen /hpf Urine Casts 0-2 Influenza A (RT-PCR) Negative (Negative) Influenza B (RT-PCR) Negative (Negative) RSV (RT-PCR) Negative (Negative) SARS-CoV-2 RNA (RT-PCR) Negative (Negative) <Francesco Washington MD - Last Filed: 08/17/24 22:23> Lab Results 08/17/24 08/17/24 Range/Units 19:21 19:21 WBC 11.8 H (4.5-10.0) K/mm3 RBC 5.10 (4.6-6.20) M/mm3 Hgb 15.6 (14.0-18.0) g/dL Hct 46.8 (42.0-52.0) % MCV 91.8 (80-100) fl MCH 30.6 (26-34) pg MCHC 33.3 (32-36) g/dl RDW 14.1 (11.5-14.5) % Plt Count 202 (150-375) k/mm3 MPV 10.7 H (7.4-10.4) fl Immature Gran % (Auto) 0.3 (0-0.5) % Neut % (Auto) 91.8 H (45.5-73.1) % Lymph % (Auto) 2.8 L (18.3-44.2) % [place] % (Auto) 4.8 (2.6-8.5) % Eos % (Auto) 0.1 (0-4.4) % Baso % (Auto) 0.2 (0.2-1.2) % Lymph # (Auto) 0.33 L (0.9-3.2) K/mm3 [place] # (Auto) 0.6 (0.1-0.6) K/mm3 Eos # (Auto) 0.0 (0-0.3) K/mm3 Baso # (Auto) 0.0 (0.0-0.1) K/mm3 Abs Immat Gran (auto) 0.04 H (0.00-0.031) K/mm3 Absolute Neuts (auto) 10.8 H (1.3-6.7) K/mm3 Absolute Nucleated RBC 0.000 (0.0-0.012) K/mm3 Nucleated RBC % 0.0 (0.0-0.2) % PT 14.6 (11.1-14.7) Seconds INR 1.1 APTT 23.2 (22.3-36.8) Seconds Sodium 139 (137-145) mmol/L Potassium 3.8 (3.4-5.0) mmol/L Chloride 104 (98-107) mmol/L Carbon Dioxide 28 (22-30) mmol/L Anion Gap 7 (4-12) mmol/L BUN 17 (9-20) mg/dL Creatinine 0.80 (0.7-1.3) mg/dL Estim Creat Clear Calc 85 ml/min Estimated GFR > 60 (59 - ) Glucose 128 H (65-110) mg/dL Lactic Acid 1.6 (0.7-2.0) mmol/L Calcium 9.7 (8.4-10.2) mg/dL Phosphorus 2.3 L (2.5-4.5) mg/dL Magnesium 2.0 (1.6-2.3) mg/dL Total Bilirubin 2.3 H (0.2-1.3) mg/dL AST 26 (17-59) U/L ALT 27 (6-50) U/L Alkaline Phosphatase 95 (38-126) U/L Troponin I < 0.012 < 0.012 (0.000-0.034) ng/mL NT-Pro-B Natriuret Pep 416 H (19.9-100) pg/mL Total Protein 8.0 (6.3-8.2) g/dL Albumin 4.6 (3.5-5.1) g/dL Lipase 271 (23-300) U/L TSH (Reflex) 0.740 (0.465-4.68) uIU/mL Urine Color Yellow (Yellow) Urine Appearance Clear (Clear) Urine pH 6.0 (5.0-9.0) Ur Specific [place] 1.027 (1.001-1.035) Urine Protein 1+ H (Negative) mg/dL Urine Glucose (UA) Negative (Negative) mg/dL Urine Ketones Trace H (Negative) mg/dL Ur Blood (Man) Negative (Negative) Urine Nitrate Negative (Negative) Urine Bilirubin Negative (Negative) Urine Urobilinogen 1.0 (<2.0) mg/dL Leukocyte Esterase Rfl Negative (Negative) LUCINA/UL Urine RBC 0-2 (0-2) /hpf Urine WBC 0-5 (0-3) /hpf Ur Squamous Epith Cells None seen (Few) /hpf Urine Bacteria None seen /hpf Urine Casts 0-2 Influenza A (RT-PCR) Negative (Negative) Influenza B (RT-PCR) Negative (Negative) RSV (RT-PCR) Negative (Negative) SARS-CoV-2 RNA (RT-PCR) Negative (Negative) <Carlos Oliva MD - Last Filed: 08/18/24 07:26> ABG Data ABG results: 08/17/24 18:50 Puncture Site Right radial ABG pH 7.437 ABG pCO2 36.8 ABG pO2 60.7 L ABG PO2/FiO2 Ratio 2.89 ABG HCO3 24.3 ABG O2 Saturation 92.2 L ABG O2 Content 19.9 ABG Base Excess 0.5 A-a Gradient 45.0 Oxyhemoglobin 90.1 Total Hemoglobin 15.7 O2 Delivery Device Not Reportable O2 Liters/Min Not Reportable FiO2 21 <Francesco Washington MD - Last Filed: 08/17/24 22:23> 08/17/24 18:50 Puncture Site Right radial ABG pH 7.437 ABG pCO2 36.8 ABG pO2 60.7 L ABG PO2/FiO2 Ratio 2.89 ABG HCO3 24.3 ABG O2 Saturation 92.2 L ABG O2 Content 19.9 ABG Base Excess 0.5 A-a Gradient 45.0 Oxyhemoglobin 90.1 Total Hemoglobin 15.7 O2 Delivery Device Not Reportable O2 Liters/Min Not Reportable FiO2 21 <Carlos Oliva MD - Last Filed: 08/18/24 07:26> Discharge Plan Discharge Clinical Impression: Dehydration, Nausea & vomiting, Diarrhea, Atrial fibrillation <Francesco Washington MD - Last Filed: 08/17/24 22:23> Patient Disposition: Home, Self-Care <Francesco Washington MD - Last Filed: 08/17/24 22:23> Condition: Improved <Francesco Washington MD - Last Filed: 08/17/24 22:23> Instructions: Antibiotic Form, Dehydration (DC) <Francesco Washington MD - Last Filed: 08/17/24 22:23> Additional Instructions: Please follow-up with your family doctor within the next 3-5 days. Return to the emergency department if any new or worsening symptoms develop. <Francesco Washington MD - Last Filed: 08/17/24 22:23> Prescriptions: No Action buspirone 5 mg tablet 5 mg PO BID Qty: 60 11RF fluticasone propionate 50 mcg/actuation spray,suspension 1 spray INTRANASAL BID PRN (Reason: SINUS CONGESTION) acetaminophen 500 mg Tablet 1,000 mg PO QID PRN (Reason: Pain) Debrox 6.5 % drops 5 drp EACH EAR Q12H 4 Days Qty: 15 0RF tamsulosin 0.4 mg capsule 0.4 mg PO QHS Qty: 90 3RF cefdinir 300 mg capsule 300 mg PO Q12H Qty: 20 0RF lovastatin 20 mg tablet 20 mg PO . q.a.m. Qty: 90 3RF escitalopram oxalate [Lexapro] 20 mg tablet 20 mg PO . q.h.s. Qty: 90 3RF Eliquis 5 mg tablet 5 mg PO BID Qty: 180 3RF amlodipine 5 mg tablet 5 mg PO . q.a.m. Qty: 90 3RF <Francesco Washington MD - Last Filed: 08/17/24 22:23> Follow-up/Referrals: Alexis Sullivan MD [Primary Care Provider] - 3 Days <Francesco Washington MD - Last Filed: 08/17/24 22:23> Time of Disposition: 00:23 <Francesco Washington MD - Last Filed: 08/17/24 22:23> 00:23 <Carlos Oliva MD - Last Filed: 08/18/24 07:26>
[2024-08-17] MEDS: SODIUM CHLORIDE 0.9% IV 1,000 ML 999 ML IV CONT (22:12)
--- NOTE | 2024-08-18 01:20 | PC.NURSE ---
pt discharged, 2L NS not given
[2024-08-18 01:24] VITALS: BP 154/81; PULSE 84; RESP 18; O2SAT 94
== END 2024-08-18 01:24 | disposition home or self-care (01) ==
PROVIDERS: Emergency Medicine; Emergency Provider Emergency Medicine; PCP Family Medicine
DX: I48.91 Unspecified atrial fibrillation (principal); E86.0 Dehydration; R19.7 Diarrhea, unspecified; R11.2 Nausea with vomiting, unspecified; Z20.822 Contact with and (suspected) exposure to COVID-19; I10 Essential (primary) hypertension; E78.2 Mixed hyperlipidemia; E66.9 Obesity, unspecified; Z68.35 Body mass index [BMI] 35.0-35.9, adult; N40.0 Benign prostatic hyperplasia without lower urinary tract symptoms; H04.121 Dry eye syndrome of right lacrimal gland; K58.0 Irritable bowel syndrome with diarrhea; M17.12 Unilateral primary osteoarthritis, left knee; D51.9 Vitamin B12 deficiency anemia, unspecified; E55.9 Vitamin D deficiency, unspecified; F41.9 Anxiety disorder, unspecified; F32.A Depression, unspecified; Z96.652 Presence of left artificial knee joint; Z86.0100 Personal history of colon polyps, unspecified; Z86.16 Personal history of COVID-19; Z87.01 Personal history of pneumonia (recurrent); Z90.49 Acquired absence of other specified parts of digestive tract; Z79.01 Long term (current) use of anticoagulants; Z79.899 Other long term (current) drug therapy; R94.31 Abnormal electrocardiogram [ECG] [EKG]
CPT/HCPCS: 36415; 36600; 70450; 71045; 71250; 80053; 81001; 82805; 83605; 83690; 83735; 83880; 84100; 84443; 84484; 85018; 85025; 85610; 85730; 87637; 93005; 96360; 96361; 99284; J7030

== ENCOUNTER 2025-04-08 11:14 | Emergency (ER) | payer MEDICARE, SELFPAY ==
--- NOTE | ~2025-04-08 | XR_ITS ---
EXAM/PROCEDURE: XR chest 1V portable - 04/08/2025 13:08 CDT HISTORY: 69 years old Male with shortness of breath TECHNIQUE: Two view(s) of the chest. COMPARISON: None available. FINDINGS: LUNGS/ PLEURA: No focal consolidation. No appreciable pneumothorax or large pleural effusion. Lesion of the right hemidiaphragm causing compressive atelectasis. HEART/ MEDIASTINUM: Heart appears normal in size. BONES: No acute osseous abnormality. OTHER: Visualized upper abdomen is unremarkable. IMPRESSION: No acute process. Reviewed, dictated and finalized at location A. IMPRESSION: No acute process.
--- OUTSIDE RECORDS SUMMARY | 2025-04-08 11:17 | XMS_ITS | Clinical Summary ---
Author Organization [facility] Address [address] [place] [address] Care Team Providers Care Handle Lathe Operator Name Role Phone Alexis Sullivan MD Primary Care Provider [phone] Source Comments [facility],non-owned Affiliates and Associated Physician Practices is amultiple site organization consisting of ambulatory clinics and hospital sitesin [place], [place], [place] and [place]. This disclosure is being madepursuant to the Care Everywhere program and may not contain all information available regarding this patient. Last updated 18.[facility] Allergies No known active allergies Medications * Be aware that medications may not be up to date on this document. Alwaysverify current medications with the patient. apixaban (Eliquis) 5 MG tablet 1 (one) tablet Activ e escitalopram (Lexapro) 20 MG tablet Take 1 (one) tablet by mouth once daily 4 Active amLODIPine (Norvasc) 5 MG tablet Take 1 (one) tablet by mouth once daily Active lovastatin (Mevacor) 20 MG tablet Take 1 (one) tablet by mouth at bedtime Active DULoxetine (Cymbalta) 60 MG capsule Take 1 (one) capsule by mouth once daily Active prednisoLONE acetate (Pred Forte) 1 % ophthalmic suspension Instill 1 (one) drop into right eye 4 times daily 15 mL 3 5 Active ofloxacin (Ocuflox) 0.3 % ophthalmic solution Instill 1 (one) drop into right eye 4 times daily 10 mL 3 5 Active trimethoprim-po lymyxin B (Polytrim) 68145-3.1 UNIT/ML-% ophthalmic solutionIndicat ions:Corneal Abrasion Instill 2 (two) drops into right eye 3 times daily Reasons: Wound to the Cornea caused by Scraping Active busPIRone (Buspar) 5 MG tablet Take 1 (one) tablet by mouth 2 times daily 5 Active tobramycin (Tobrex) 0.3 % ophthalmic solution ADMINISTER 1 DROP INTO RIGHT EYE EVERY 4 HOURS. 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 Protein-calorie malnutrition, severe 11/04/2023 Acute respiratory failure with hypoxia Pneumonia of left lung due to infectious organis m 10/18/2023 Chronic atrial fibrillation 11/16/2021 Encounters Date Type Department Care Team Description 03/11/2025 Telephone [facility] - Centralized Scheduling [facility] [place] [address] Misty Farias MD Appointment 03/11/2025 Travel 02/26/2025 2:30 PM CDT Office Visit [facility] - Ophthalmology [address] [place] [phone] Misty Farias MD Floppy eyelid syndrome of right eye (Primary Dx); Exposure keratopathy, right 02/17/2025 11:15 AM CDT Office [facility] Ophthalmology [address] [place] [phone] Misty Farias MD Exposure keratopathy, right (Primary Dx); Floppy eyelid syndrome of right eye 02/17/2025 Travel 01/22/2025 8:30 AM CDT Office Visit [facility] - Ophthalmology [address] [place] [phone] Postop check (Primary Dx) 01/22/2025 Travel 01/20/2025 6:13 PM CDT Anesthesia Event [facility] [address] [place] [address] Silas Koenig MD Wilson, Patricia Ann, APRN-WOOD STOCK BLANK HANDLER 01/20/2025 2:40 PM CDT - 01/20/2025 4:25 PM CDT Surgery [facility] [address] [place] [address] Leo Ospina MD Penetrating Keratoplasty, Right Eye and temporary tarsorrhaphy of right eyelids 01/20/2025 2:20 PM CDT - 01/20/2025 9:50 PM CDT Hospital Encounter [facility] [address] [place] [address] Leo Ospina MD Surgery General Discharge Disposition: Home or Self Care 01/20/2025 Travel 01/19/2025 Telephone [facility] - Ophthalmology [address] [place] [address] Kathleen Mcneal MD Appointment from Last 3 Months Social History Tobacco Use Types Packs/Day Years Used Date Smoking Tobacco: Never Smokeless Tobacco: Never Tobacco Cessation:Counseling Given: Not Answered Alcohol Use Standard Drinks/Week Comments Yes 0 (1 standard drink = 0.6 oz pur e alcohol) occasional AUDIT-C Answer Date Recorded Q1: How often do you have a drink containing alc ohol? Monthly or less 01/20/2025 Q2: How many drinks containi ng alcohol do you have on a typical day when you are drinking? 1 or 2 01/20/2025 Q3: How often do you have si x or more drinks on one occasion? Never 01/20/2025 PHQ-2 Answer Date Recorded Patient Health Questionnaire-2 Score 0 02/17/2025 Sex and Gender Information Value Date Recorded Sex Assigned at Not on file Legal Sex Male 1:58 PM CDT Gender Identity Not on file Sexual Orientation Not on file Last Filed Vital Signs Vital Sign Reading Time Taken Comments Blood Pressure 105/77 01/20/2025 9:30 PM CDT Pulse 80 01/20/2025 9:30 PM CDT Temperature 37.1 C (98.7 F) 01/20/2025 8:30 PM CDT Respiratory Rate 9 01/20/2025 9:30 PM CDT Oxygen Saturation 90% 01/20/2025 9:30 PM CDT Inhaled Oxygen Concentration - - Weight 103 kg (227 lb 1.6 oz) 01/20/2025 3:00 PM CDT Height 170.2 cm (5' 7) 01/20/2025 3:00 PM CDT Body Mass Index 35.57 01/20/2025 3:00 PM CDT Plan of Treatment Health Maintenance Due Date Last Done Comments COLOGUARD (AGES 45-75) - COL ON CA SCREENING 1953 COLON MONITORING 1953 COLONOSCOPY - COLON CA SCREENING 1953 CT COLONOGRAPHY - COLON CA SCREENING 1953 Colorectal Cancer Screening 1953 FIT - COLON CA SCREENING 1953 FLEX SIG - COLON CA SCREENING 1953 HEPATITIS C SCREENING 05/27/1971 DTAP/TDAP/TD VACCINES (1 - Tdap) 1972 PNEUMOCOCCAL VACCINE 50+ (1 of 2 - PCV) 1972 ZOSTER VACCINE (1 of 2) 2003 Respiratory Syncytial Virus (RSV) Vaccine Pt: or over 60 yrs (1 - Risk 60-74 years 1-dose series) 2013 COVID-19 VACCINE ( - 2023-2 5 season) 2024 MEDICARE AWV CALENDAR YEAR 2024 INFLUENZA VACCINE (#1) 2025 DEPRESSION SCREENING Completed 02/17/2025 HEPATITIS B VACCINE Aged Out No longe r eligible based on patient's age to complete this topic HIB VACCINE Aged Out No longer eligi ble based on patient's age to complete this topic HPV VACCINE Aged Out No longer eligi ble based on patient's age to complete this topic MENINGOCOCCAL (Group B) VACC INE SHARED DECISION-MAKING Aged Out No longer eligibl e based on patient's age to complete this topic MENINGOCOCCAL GROUPS A/C/Y/W VACCINE Aged Out No longer eligible b ased on patient's age to complete this topic Medical Devices Implanted Type Area [employer] Taleo Manager Device Identifier Shelf Expiration Date Model / Serial / Lot Nico Cornea - Sn/A Implanted:Qty: 1 on 09/08/2024 by Leo Ospina MD at [facility] Right: Cornea Mid [employer] [facility] 09/18/2024 BILL ONLY CORNEA / N/A / [id number] Description:Donor Number: [id number] Product: [id number] Tissue Exp: 09/18/2024 Optisol Exp: 08/20/2025 Donor ID Number: [id number] Right Cornea Implanted:Qty: 1 on 01/20/2025 by Leo Ospian MD at [facility] 09/05/2026 [id number] / / [id number] Procedures Procedure Name Priority Date/Time Associated Diagnosis Comments TARSORRHAPHY INTERMARGINAL ADHESIONS RLL Routine 02/26/2025 4:49 PM CDT 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, right PATHOLOGY TISSUE Routine 01/20/2025 6:58 PM CDT Perforated corneal ulcer, right eye CULTURE FUNGUS OTHER+FUNGUS SMEAR Routine 01/20/2025 6:55 PM CDT Perforated corneal ulcer of right eye ENDOTRACHEAL TUBE NOTE Routine 01/20/2025 6:47 PM CDT [place] CORNEAL TRANSPLANT,PENETRATI NG 01/20/2025 5:47 PM CDT Perforated corneal ulcer, right eye Special Needs Supine Eye stretcher Eye microscope 4/22 NT from Last 3 Months Results * TARSORRHAPHY INTERMARGINAL ADHESIONS RLL (02/26/2025 4:49 PM CDT) Anatomical Region Laterality Modality Head Other Narrative 02/26/2025 4:49 PM CDT Table formatting from the original result was not included. Minor Procedure Op Note Date of Procedure: 02/26/2025 Cesar Luciano is a 69 year old male here for right permanent tarsorrhaphy procedure. He feels that things look better today. He has not seen Dr. Ospina yet but has made an appointment for next week he thinks. He is currently using a pink bottle, a white bottle, and the ointment currently. Past Medical History: Diagnosis Date Anesthesia no issues Cardiac dysrhythmia A-FIB Essential hypertension Obesity Pure hypercholesterolemia Current Outpatient Medications Medication Sig Dispense Refill amLODIPine (Norvasc) 5 MG tablet Take 1 (one) tablet by mouth once daily apixaban (Eliquis) 5 MG tablet 1 (one) tablet busPIRone (Buspar) 5 MG tablet Take 1 (one) tablet by mouth 2 times daily DULoxetine (Cymbalta) 60 MG capsule Take 1 (one) capsule by mouth once daily erythromycin (Romycin) 5 MG/GM ophthalmic ointment Instill into right eye 4 times daily 3.5 g 1 escitalopram (Lexapro) 20 MG tablet Take 1 (one) tablet by mouth once daily lovastatin (Mevacor) 20 MG tablet Take 1 (one) tablet by mouth at bedtime ofloxacin (Ocuflox) 0.3 % ophthalmic solution Instill 1 (one) drop into right eye 4 times daily 10 mL 3 prednisoLONE acetate (Pred Forte) 1 % ophthalmic suspension Instill 1 (one) drop into right eye 4 times daily 15 mL 3 tobramycin (Tobrex) 0.3 % ophthalmic solution ADMINISTER 1 DROP INTO RIGHT EYE EVERY 4 HOURS. trimethoprim-polymyxin B (Polytrim) 15908-4.1 UNIT/ML-% ophthalmic solution Instill 2 (two) drops into right eye 3 times daily Reasons: Wound to the Cornea caused by Scraping No current facility-administered medications for this visit. 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 tarsorrhaphy Physical Exam/Indications: Floppy eyelid and corneal exposure with ulceration requiring transplants Procedure Description: After risks, benefits and alternatives were discussed, an informed consent was signed and the patient was reclined on a stretcher. A time out was performed with confirmation of the surgical site. A drop of proparacaine was placed in the right eye. A cotton tip applicator soaked in proparacaine was placed in the right eye. A 1% lidocaine with epinephrine mixture was used to infiltrate the right lower eyelid first and then the upper eyelid. A 0.75% bupivicaine with epinephrine mixture was then infiltrated into the right upper and lower eyelids. An #11 blade was then used to dissect along the rajput line in the lateral aspect of the left lower and upper eyelid. A 15 mm medial tarsorrhaphy was delineated. The anterior and posterior lamella were isolated using Wiliam scissors. The marginal mucosa overlying the tarsus was then removed. A 6-0 vicryl suture was then placed in a mattress fashion to attach the lower and upper eyelid tarsal edges. A mattress suture was then placed between the upper and lower eyelids to sandwich the cut edges together at the edge of the incision. A 6-0 plain gut suture was then used to close the skin margin. Erythromycin ophthalmic ointment was then placed on the wound at the end of the procedure. The patient tolerated the procedure very well and recovered without difficulty. All sponges, needles and instruments were accounted for at the end of the procedure. The attending was present for the entire case from start to finish. EBL: 1 ml Complications: None Follow Up: 2 weeks, sooner if any problems. Misty Farias MD 02/26/2025 4:47 PM Misty Farias MD OPHTHALMOLOGY SERVICES OR DERABLES Final Result * PATHOLOGY TISSUE (01/20/2025 6:58 PM CDT) Case Report Surgical Pathology Report Case: [id number] Authorizing Provider: Leo Ospina MD Collected: 01/20/2025 06:58 PM Ordering Location: [facility] Received: 01/21/2025 04:35 AM Pathologist: Shahrzad Smith MD Specimen: Cornea, perforated cornea right 01/22/2025 11:11 AM CDT [facility] Final Diagnosis Cornea, right, penetrating keratoplasty (A): - Corneal epithelium with reactive changes - Hypercellular stroma with increased vessels, inflammation and ciliary body fragments - PAS highlights fragmented Descemet's membrane within stroma 01/22/2025 11:11 AM CDT [facility] at 1111 CDT Microscopic Description and Comment Microscopic examination substantiates the diagnosis. 01/22/2025 11:11 AM T [facility] Clinical History The patient is a 69 year old man with right corneal perforation. 01/22/2025 11:11 AM T [facility] Gross Description The requisition and specimen(s) are identified with the patient's name, Cesar Luciano. Received in formalin, specimen A, is a 0.6 x 0.6 cm shoemaker-white cloudy cornea excised to a depth of 0.2 cm. There is focal hemorrhage in the posterior aspect. The specimen is bisected and entirely submitted in cassette A1. IKD 01/22/2025 11:11 AM T [facility] Pathologist Location at [facility] 01/22/2025 11:11 AM CDT [facility] Disclaimer The performance characteristics of all immunohistochemical and indirect immunofluorescence stains (if any) cited in this report were determined by the Histopathology Laboratory of [facility]. Some of these tests were developed by our own laboratory and have not been cleared or approved by the US Food and Drug Administration. The FDA does not require this test to go through premarket FDA review. These tests are used for clinical purposes. They should not be regarded as investigational or for research. This laboratory is certified under the Clinical Laboratory Improvement Amendments (CLIA) as qualified to perform high complexity clinical laboratory testing. This case has been personally reviewed and interpreted by the attending (teaching) pathologist. 01/22/2025 11:11 AM T [facility] Embedded Images 01/22/2025 11:11 AM T [facility] Biopsy, Excision CORNEAL PART / Unknown 01/20/2025 6:58 PM CDT 01/21/2025 4:35 AM CDT Comment:Pre-op diagnosis: perforated corneal ulcer in the right eye Leo Ospina MD LAB - PATHOLOGY/CYTOLOGY ORDER SUDHIR Final Result [facility] [address] [place] [address], [facility] [[email or web address]] [phone] * CULTURE FUNGUS OTHER+FUNGUS SMEAR (01/20/2025 6:55 PM CDT) Culture No fungus isolated CHRIST 02/15/2025 8:22 AM CDT [facility] MICROBIOLOGY Microbiology ENTIRE EYE / Unknown Collection / Unknown 01/20/2025 6:55 PM CDT 01/20/2025 8:25 PM CDT Leo Ospina MD LAB - MICROBIOLOGY ORDERABLES Final Result [facility] MICROBIOLOGY [address] [place] [address], [facility] [[email or web address]] [phone] * ETT LINE PERFORMABLE (01/20/2025 6:47 PM CDT) Narrative Liat Herbert MD - 01/20/2025 6:47 PM CDT Liat Herbert MD 01/20/2025 6:48 PM Endotracheal Tube Placement: Patient Location: OR. Intubation Event Date/Time: 01/20/2025 6:26 PM Procedure: intubation (82512) Procedure Section: Sedation: under general anesthesia. Indications for Airway Management: anesthesia Induction: standard IV Patient Position: sniffing Mask Ventilation: difficult and required 2 people (2 handed). Blade Type: Video Blade Size: 4 Laryngoscopy View: grade 1 (full cords) Intubation Adjuncts: stylet and video laryngoscope Tube: endotracheal tube Placement: oral Tube type: cuff - inflated Tube Size (MM): 7 Depth of Insertion (CM): 24 Measured From: teeth Cuff volume (mL): 8 Cuff Inflated With: air Number of Attempts: 1. Placement Verified By: direct visualization, bilateral breath sounds, chest auscultation and CO2 monitor Tube secured with: adhesive tape. Dentition unchanged? Yes Difficult Airway? No. Procedure Start Time: 01/20/2025 6:26 PM. Staff Section Anesthesia Provider: Liat Herbert MD, Performed the procedure Provider #1: Silas Koenig MD. Silas Koenig MD GENERAL ANESTHESIA ORDERA BLES Final Result from Last 3 Months Insurance [employer] MEDICARE ADV AETNA MEDICARE ADV Care Teams Handle Lathe Operator Relationship Specialty Start Date End Date Alexis Sullivan MD [address] [place] [address] PCP - General 07/20/21
--- OUTSIDE RECORDS SUMMARY | 2025-04-08 11:17 | XMS_ITS | Clinical Summary ---
Author Organization [facility] Address [address] [address] Phone Care Team Providers Care Gym Manager Name Role Phone Alexis Sullivan MD Primary Care Provider Social History Tobacco Use Types Packs/Day Years Used Date Smoking Tobacco: Never Assessed Sex and Gender Information Value Date Recorded Sex Assigned at Not on file Legal Sex Male 1:59 PM RESUME SPECIALIST Gender Identity Not on file Sexual Orientation Not on file Plan of Treatment Health Maintenance Due Date Last Done Comments Hepatitis C Virus (HCV) Screening 1955 TdaP Immunization 1955 Colonoscopy 1998 Colorectal Cancer Screening 1998 Cologuard 2003 Immunochemical Fecal Occult Blood 2003 Pneumococcal Immunization (5 0+ years) (1 of 1 - PCV) 2003 Zoster Immunization (1 of 2) 2003 Influenza Immunization (#1) 2024 SARS-COV-2 Immunization ( - season) 2024 Respiratory Syncytial Virus (RSV) Immunization (Adult) (1 - 1-dose 75+ series) 2028 Hepatitis B Immunization Aged Out No longer eligible based on patient's age to complete this topic Meningococcal Immunization (ACWY) Aged Out No longer eligible based on patient's age to complete this topic Rotavirus Immunization Aged Out No lo nger eligible based on patient's age to complete this topic Insurance [facility] Care Teams Gym Manager Relationship Specialty Start Date End Date Alexis Sullivan MD [address] [address] PCP - General Family Medicine 10/24/20
--- OUTSIDE RECORDS SUMMARY | 2025-04-08 11:17 | XMS_ITS | Clinical Summary ---
Author Organization [facility] [address] Address [address] [place] [address] Care Team Providers Care Facilities Maintenance Supervisor Name Role Phone Alexis Sullivan MD Primary Care Provider [phone] Allergies No known active allergies Medications tamsulosin (FLOMAX) 0.4 mg extended release capsuleIndications :benign prostatic hyperplasia with lower urinary tract sx Take 1 capsule by mouth daily 09/30/19 22 Active apixaban (ELIQUIS) 5 mg tabletIndications: VTE Prophylaxis 1 tablet Acti ve lovastatin (MEVACOR) 20 mg tabletIndications: hyperlipidemia Take 1 tablet by mouth daily 12/26/19 22 Active escitalopram (LEXAPRO) 20 mg tablet Take 1 tablet (20 mg total) by mouth daily 30 tablet 11/08/19 24 Active erythromycin (ILOTYCIN) ophthalmic ointment Apply to both eyes nightly 11/07/19 24 Active olopatadine (PATANOL) 0.1 % ophthalmic solutionIndication s:Allergic Conjunctivitis Administer 1 drop into both eyes daily 11/07/19 24 Active moxifloxacin (VIGAMOX) 0.5 % ophthalmic solution Administer 1 drop into the right eye every 2 (two) hours AND 1 drop 4 (four) times a day. 11/07/19 24 Active ofloxacin (OCUFLOX) 0.3 % ophthalmic solutionIndication s:Bacterial Keratitis Administer 1 drop into the right eye every 4 (four) hours. Indications: inflammation of the cornea of the eye due to bacteria 11/18/19 24 Active vancomycin/0.9 % sod chloride (vancomycin in 0.9 % sodium chl) 10 mg/mL dropsIndications:i nfection Administer 1 drop into the right eye every 1 (one) hour. Indications: an infection Active tobramycin (TOBREX) 0.3 % ophthalmic solutionIndication s:Bacterial Conjunctivitis Administer 1 drop into the right eye every 1 (one) hour. Indications: pink eye from bacterial infection Active Active Problems Problem Noted Date Diagnosed Date Protein-calorie malnutrition, severe 11/04/2023 Acute respiratory failure with hypoxia Pneumonia of left lung due t o infectious organism, unspecified part of lung 10/18/2023 Chronic atrial fibrillation 11/16/2021 Medical History Medical History Date Comments Persistent atrial fibrillation (HCC) Social History Tobacco Use Types Packs/Day Years Used Date Smoking Tobacco: Never Tobacco Cessation:Counseling Given: Not Answered OASIS D0700: Social Isolation Answer Da te Recorded Frequency of experiencing loneliness or isolatio n Rarely 01/08/2024 OASIS A1250: Transportation Answer Date Recorded Lack of Transportation (Medical) No 01/08/2024 Lack of Transportation (Non-Medical) No 01/08/2024 Patient Unable or Declines to Respond No 01/08/2024 OASIS B1300: Health Literacy Answer Abran e Recorded Frequency of needing help to read materials from doctor or pharmacy Sometimes 01/08/2024 [facility] Utilities Answer Date Recorded In the past 12 months has th e [email or web address], gas, oil, or water [employer] threatened to shut off services in your home? No 10/23/2023 Social Connection and Isolat ion Panel [NHANES] Answer Date Recorded In a typical week, how many times do you talk on the phone with family, friends, or neighbors? Never 10/23/2023 How often do you get togethe r with friends or relatives? More than three times a week 10/23/2023 How often do you attend chur ch or scientologist services? More than 4 times per year 10/23/2023 Do you belong to any clubs o r organizations such as christian groups, unions, fraternal or athletic groups, or school groups? No 10/23/2023 How often do you attend meet ings of the clubs or organizations you belong to? Never 10/23/2023 Are you , , di vorced, , never , or living with a partner? 10/23/2023 Overall Financial Resource Strain (CARDIA) Answe r Date Recorded How hard is it for you to pa y for the very basics like food, housing, medical care, and heating? Not hard at all 10/23/2023 Hunger Vital Sign Answer Date Recorded Within the past 12 months, y ou worried that your food would run out before you got the money to buy more. Never true 10/23/19 Within the past 12 months, t he food you bought just didn't last and you didn't have money to get more. Never true 10/23/2023 PRAPARE - Transportation Answer Date Re corded In the past 12 months, has l ack of transportation kept you from medical appointments or from getting medications? No 10/01 In the past 12 months, has l ack of transportation kept you from meetings, work, or from getting things needed for daily living? No 10/23/2023 Housing Stability Vital Sign Answer Abran e Recorded In the last 12 months, was t here a time when you were not able to pay the mortgage or rent on time? No 10/23/2023 In the last 12 months, how many places have you lived? 1 10/23/2023 In the last 12 months, was t here a time when you did not have a steady place to sleep or slept in a mcfp (including now)? No 10/23/2023 Personal Safety Answer Date Recorded Have you ever been in or are you currently in a harmful physical or emotional relationship or is someone making you feel afraid or unsafe? Denies 10/18/2023 Sex and Gender Information Value Date Recorded Sex Assigned at Not on file Legal Sex Male 3:08 AM AUDITOR APPRAISER Gender Identity Not on file Sexual Orientation Not on file Obstetrics History Last Filed Vital Signs Vital Sign Reading Time Taken Comments Blood Pressure 140/78 01/01/2024 11:47 AM CDT Pulse 80 01/01/2024 11:47 AM CDT Temperature 36.2 C (97.1 F) 01/01/2024 11:47 AM CDT Respiratory Rate 18 01/01/2024 11:47 AM CDT Oxygen Saturation 98% 01/01/2024 11:47 AM CDT Inhaled Oxygen Concentration - - Weight 95.3 kg (210 lb) 11/10/2023 10:37 AM AUDITOR APPRAISER Height 170.2 cm (5' 7) 11/10/2023 10:37 AM AUDITOR APPRAISER Body Mass Index 32.89 11/10/2023 10:37 AM AUDITOR APPRAISER Plan of Treatment Health Maintenance Due Date Last Done Comments Colon Cancer Screening-Colonoscopy 1955 Depression Screening 1953 Hepatitis C Screening 1953 DTaP/Tdap/Td Vaccine (1 - Tdap) 1964 Hepatitis B Screening 1971 Pneumococcal vaccine 65+ (1 of 2 - PCV) 1972 Zoster Vaccine (1 of 2) 2003 Abdominal Aortic Aneurysm (AAA) Screen 2018 Well Visit 65+ 2018 Covid-19 Vaccine ( season) 05/31/202402/2021, 11/05/2020 Fall Risk Assessment 11/07/2024 11/07/2023 Influenza Vaccine (Season Ended) 2025 Insurance [employer] OOS Member Subscriber Plan / Payer (Ef fective 2022-Present) Name:Cesar Luciano Relation to Subscriber:Self Name:Cesar Luciano Payer ID:[id number] (NAIC) Type:[facility] Address: [address] MED[address]ARE [facility] MEDIC[facility] Advance Directives For more information, please contact: [phone] * Full Code (Latest Code Status on File) Date Activated Date Inactivated Comments 10/18/2023 7:51 PM 11/07/2023 6:23 PM Care Teams Facilities Maintenance Supervisor Relationship Specialty Start Date End Date Alexis Sullivan MD [address] [address] PCP - General Family Medicine 11/16/21
--- OUTSIDE RECORDS SUMMARY | 2025-04-08 11:17 | XMS_ITS | Encounter Summary ---
Author Organization [facility] Address [address] [place] [address] Care Team Providers Care Block Greaser Name Role Phone Alexis Sullivan MD Primary Care Provider [phone] Encounter Details Date Type Department Care Team (Late st Contact Info) Description 11/03/2024 Telephone [facility] - Ophthalmology [address] [place] [id number] Misty Farias MD [address] [place] [address] DE[place] [address] Social History Tobacco Use Types Packs/Day Years Used Date Smoking Tobacco: Never Smokeless Tobacco: Never Alcohol Use Standard Drinks/Week Comments Yes 0 (1 standard drink = 0.6 oz pur e alcohol) occasional Sex and Gender Information Value Date Recorded Sex Assigned at Not on file Legal Sex Male 1:58 PM CDT Gender Identity Not on file Sexual Orientation Not on file documented as of this encounter Functional Status * Is person deaf or have serious hearing difficulty? Answer Date of Assessment Author No 09/08/2024 12:50 PM Tom Patel RN * Is person blind or have serious difficulty seeing? Answer Date of Assessment Author No 09/08/2024 12:50 PM Tom Patel RN * Does person have serious difficulty walking/climbing stairs? Answer Date of Assessment Author No 09/08/2024 12:50 PM UTILITY SYSTEMS REPAIRER OPERATOR Tom Duque RN * Does person have difficulty dressing/bathing? Answer Date of Assessment Author No 09/08/2024 12:50 PM UTILITY SYSTEMS REPAIRER OPERATOR Tom Duque RN * Does person have difficulty doing errands alone? Answer Date of Assessment Author No 09/08/2024 12:50 PM UTILITY SYSTEMS REPAIRER OPERATOR Tom Duque RN documented as of this encounter Mental Status * Does person have difficulty concentrating/remembering/making decisions? Answer Entry Date Author No 09/08/2024 12:50 PM UTILITY SYSTEMS REPAIRER OPERATOR Tom Duque RN documented in this encounter Miscellaneous Notes * Telephone Encounter - Ajay Young - 11/03/2024 8:47 AM CST Patient's daughter called stating she is unable to bring the patient in for the appt tomorrow. Rescheduled to next available but would like to know if there is anyway he can be seen sooner. Please advise. ITY SYSTEMS REPAIRER OPERATOR documented in this encounter Plan of Treatment Not on file documented as of this encounter Visit Diagnoses Not on filedocumented in this encounter Care Teams Block Greaser Relationship Specialty Start Date End Date Alexis Sullivan MD [address] [place] [address] PCP - General 07/20/21 documented as of this encounter
--- OUTSIDE RECORDS SUMMARY | 2025-04-08 11:17 | XMS_ITS | Encounter Summary ---
Author Organization [facility] Address [address] [place] [address] Care Team Providers Care Machine Helper Name Role Phone Alexis Sullivan MD Primary Care Provider [phone] Encounter Details Date Type Department Care Team (Late st Contact Info) Description 09/16/2024 Telephone [facility] - Ophthalmology [address] [place] [id number] Leo Ospina MD [address] [place] [address] [place] [address] Social History Tobacco Use Types [...] of Assessment Author No 09/08/2024 12:50 PM oTm Patel RN * Is person blind or have serious difficulty seeing? Answer Date of Assessment Author No 09/08/2024 12:50 PM Tom Patel RN * Does person have serious difficulty walking/climbing stairs? Answer Date of Assessment Author No 09/08/2024 12:50 PM CRM MARKETING EXECUTIVE Tom Duque RN * Does person have difficulty dressing/bathing? Answer Date of Assessment Author No 09/08/2024 12:50 PM CRM MARKETING EXECUTIVE Tom Duque RN * Does person have difficulty doing errands alone? Answer Date of Assessment Author No 09/08/2024 12:50 PM CRM MARKETING EXECUTIVE Tom Duque RN documented as of this encounter Mental Status * Does person have difficulty concentrating/remembering/making decisions? Answer Entry Date Author No 09/08/2024 12:50 PM CRM MARKETING EXECUTIVE Tom uDque RN documented in this encounter Miscellaneous Notes * Telephone Encounter - Ajay Young - 09/16/2024 2:06 PM CST Patient's daughter calling to schedule patient's follow up appt. Daughter stated they were advised to return the first week of September but next available's are showing for October. Please advise. MARKETING EXECUTIVE documented in this encounter Plan of Treatment Not on file documented as of this encounter Visit Diagnoses Not on filedocumented in this encounter Care Teams Machine Helper Relationship Specialty Start Date End Date Alexis Sullivan MD [address] [facility] [address] [place] [address] PCP - General 07/20/21 documented as of this encounter
--- OUTSIDE RECORDS SUMMARY | 2025-04-08 11:17 | XMS_ITS | Referral Summary ---
Author Organization [facility] [address] Address [address] [place] [address] Care Team Providers Care Cylinder Checker Name Role Phone Alexis Sullivan MD Primary Care Provider [phone] Allergies No known active allergies Medications tamsulosin [...] of the eye due to bacteria 11/18/19 Active vancomycin/0.9 % sod chloride (vancomycin in [...] of lung 10/18/2023 Chronic atrial fibrillation 11/16/2021 Social History Tobacco Use Types Packs/Day Years [...] materials from doctor or pharmacy Sometimes 01/08/2024 [facility] Utilities Answer Date Recorded In the past 12 months has th e [employer], gas, oil, or water [employer] threatened to shut off services in your [...] often do you attend chur ch or adventist services? More than 4 times per year 10/23/2023 Do you belong to any clubs o r organizations such as hinduism groups, unions, fraternal or athletic groups, or [...] money to buy more. Never true 10/23/19 24 Within the past 12 months, t he [...] place to sleep or slept in a snf (including now)? No 10/23/2023 Personal Safety Answer Date Recorded Have you ever been in or are you currently in a harmful physical or emotional relationship or is someone making you feel afraid or unsafe? Denies 10/18/2023 Sex and Gender Information Value Date Recorded Sex Assigned at Not on file Legal Sex Male 3:08 AM GRAIN CLEANER AND TRANSFER OPERATOR Gender Identity Not on file Sexual Orientation [...] 95.3 kg (210 lb) 11/10/2023 10:37 AM GRAIN CLEANER AND TRANSFER OPERATOR Height 170.2 cm (5' 7) 11/10/2023 10:37 AM GRAIN CLEANER AND TRANSFER OPERATOR Body Mass Index 32.89 11/10/2023 10:37 AM GRAIN CLEANER AND TRANSFER OPERATOR Plan of Treatment Not on file Insurance [employer] CHOICE OOS [employer]OS AET MEDICARE [employer] MEDICARE Advance Directives For more information, please contact: [phone] * Full Code (Latest Code Status on File) Date Activated Date Inactivated Comments 10/18/2023 7:51 PM 11/07/2023 6:23 PM Care Teams Cylinder Checker Relationship Specialty Start Date End Date Alexis Sullivan MD [address] [address] PCP - General Family Medicine 11/16/21
[2025-04-08 11:24] VITALS: BP 156/99; PULSE 78; RESP 20; TEMP 36.4; O2SAT 96
--- NOTE | 2025-04-08 11:28 | ECG_ITS ---
Test Date: 2025-04-08 11:32:39 Measurements Intervals [place] Rate: 78 P: 0 IA: 0 QRS: -19 QRSD: 98 T: 8 QT: 365 QTc: 417 Interpretive Statements ATRIAL FIBRILLATION NONSPECIFIC T-WAVE ABNORMALITY INFERIOR INFARCT, AGE INDETERMINATE ABNORMAL RHYTHM ECG Compared to ECG 08/17/2024 18:17:03 NO SIGNIFICANT CHANGES Electronically Signed On 04-08-2025 13:16:36 CDT by Macho Batista M.D.
[2025-04-08 11:47] LABS: Hematocrit 47.3 % (42.0-52.0); Hemoglobin 15.2 g/dL (14.0-18.0); Immature Granulocyte Percent A 0.3 % (0-0.5); Lymphocytes Absolute Auto 1.21 K/mm3 (0.9-3.2); Mean Corpuscular HGB Conc 32.1 g/dl (32-36); Mean Corpuscular Hemoglobin 30.6 pg (26-34); Mean Corpuscular Volume 95.2 fl (80-100); Nucleated Red Blood Cells Absolute Auto 0.000 K/mm3 (0.0-0.012); Nucleated Red Blood Cells Perc 0.0 % (0.0-0.2); Platelet Count Result 203 k/mm3 (150-375); Red Blood Count 4.97 M/mm3 (4.6-6.20); White Blood Count 7.0 K/mm3 (4.5-10.0)
[2025-04-08 12:07] LABS: Alanine Aminotransferase 27 U/L (6-50); Albumin Level 4.5 g/dL (3.5-5.1); Alkaline Phosphatase 83 U/L (38-126); Anion Gap 8 mmol/L (4-12); Aspartate Amino Transferase 27 U/L (17-59); Bilirubin,Total 2.0 mg/dL (0.2-1.3); Blood Urea Nitrogen 16 mg/dL (9-20); Calcium 9.7 mg/dL (8.4-10.2); Carbon Dioxide 27 mmol/L (22-30); Chloride 106 mmol/L (98-107); Estimated Glomerular Filt Rate > 60; Glucose 102 mg/dL (65-110); Potassium 4.3 mmol/L (3.4-5.0); Sodium 141 mmol/L (137-145); Total Protein 8.0 g/dL (6.3-8.2)
[2025-04-08 12:17] VITALS: BP 162/98; PULSE 70; RESP 15; TEMP 36.6; O2SAT 97
[2025-04-08 12:19] VITALS: O2SAT 97
--- NOTE | 2025-04-08 12:41 | ED.SOB ---
HPI - SOB/Dyspnea General Chief Complaint: Shortness of Breath/Dyspnea Stated Complaint: SOB, weak, tired Time Seen by Provider: 04/08/25 12:24 History of Present Illness HPI Narrative: Pt presents with SOB for a week and feeling very anxious. Pt denies Cp or cough or fever. Pt is not SI or HI. Related Data Home Medications ?Medication ?Instructions ?Recorded ?Confirmed ?Last Taken ?Type acetaminophen 500 mg tablet 1,000 mg PO QID PRN Pain 11/14/21 02/05/24 10/31/21 History fluticasone propionate 50 1 spray intranasal BID PRN SINUS 12/25/21 02/05/24 Unknown History mcg/actuation nasal CONGESTION spray,suspension Allergies Allergy/AdvReac Type Severity Reaction Status Date / Time quetiapine (From SeroUrgent Groupl) AdvReac Unknown Fainting Verified 04/08/25 11:15 [facility] Past Medical History Medical History (Updated 04/08/25 @ 15:03 by Neris Licea III, DO) BMI 35.0-35.9,adult BMI 33.0-33.9,adult Influenza A (~10/16/23) Pneumonia, community acquired (~10/16/23) Dry eye syndrome of right eye dry eye syndrome with chronic inflammation right eye Acute bronchitis Chest x-ray 12/27/2022 with basilar atelectasis or pneumonia. At high risk for falls fell 11/13/2022 with hematoma left hip. Essential tremor (~11/22/22) essential tremor right upper extremity Ataxia (~11/19/22) MRI of the brain 12/04/2022 was unremarkable except for the inflammation of the sinuses. MRI of the lumbar spine revealed moderate spondylosis with severe stenosis of the lateral recess bilaterally at L5-S1. Irritable bowel syndrome with diarrhea Ptosis of eyelid, bilateral (~2021) treated surgically BMI 37.0-37.9, adult Obesity (BMI 30-39.9) Male erectile dysfunction, unspecified Total testosterone 275 with free testosterone low at 6.2 on 11/15/2022. Total testosterone normal at 504.6 with free testosterone 4.3. Obesity (BMI 30.0-34.9) Atrial fibrillation with normal ventricular rate (11/09/21) Echocardiogram on 11/17/2021 reveals ejection fraction 65-70% with intermediate diastolic dysfunction with small pericardial effusion and mild tricuspid valve regurgitation and mild mitral valve regurgitation Exposure to COVID-19 virus (~10/08/21) Arthritis of left knee Hypertension Polyp of colon (07/14/21) colon polyp on 07/14/2021 BMI 36.0-36.9,adult Plantar fasciitis, bilateral Conjunctivitis Mixed hyperlipidemia total cholesterol 201, triglycerides 54, HDL 50, LDL 115 on 11/09/2021. Total cholesterol 168, triglycerides 88, HDL 55, LDL 97 on 11/15/2022. normal MCKENNA on 10/23/2024. BPH without obstruction/lower urinary tract symptoms PSA 2.3 on 11/09/2021. PSA 2.1 on 11/15/2022. Colon cancer screening Adult BMI 34.0-34.9 kg/sq m COVID-19 (08/29/20) Acute sinusitis, unspecified Fever Insomnia Chest pain Hypersomnia Male erectile dysfunction, unspecified Vitamin B12 deficiency anemia, unspecified level greater than 1000 on 11/09/2021. Level normal at 469 with folic acid 9.5 and hemoglobin 13.0 on 11/15/2022. Body mass index (bmi) 38.0-38.9, adult (03/09/19) Chronic anxiety (~02/09/14) Chronic depression (~02/09/14) Eczema of lower extremity Essential (primary) hypertension Nocturia Seasonal allergic rhinitis Vitamin D deficiency, unspecified Surgical History Surgical History History of left knee replacement Unicompartmental 11/27/2021 History of cholecystectomy Family History Family History Mother Hypertension, Onset Age: 84 Sibling Hypertension Other Malignant neoplasm of prostate Social History Social History Smoking status: Never smoker Second hand tobacco smoke exposure: No Alcohol intake: current Drinks per week: 3 Alcohol use details: STATES MAYBE 6/MONTH Substance use: never Substance use type: does not use Do You Feel Safe in your Home?: Yes Lack of Transportation: No Lack of Food: Never True Current Housing: Decline to Answer Concerned About Future Housing: No Difficulty Paying Gas/Electric Bills: No Difficulty Paying for Meds: No Currently Unemployed: No Education: High School Diploma/GED Difficulty w/ Childcare or Family Care: No Living arrangements: with family Occupation/Education: retired 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 Gender identity (if verbalized by the patient): Male Spiritual care concerns: No Course Vital Signs Vital signs: Vital Signs Temperature 97.6 F 04/08/25 11:24 Pulse Rate 78 04/08/25 11:24 Respiratory Rate 20 04/08/25 11:24 Blood Pressure 156/99 H 04/08/25 11:24 Pulse Oximetry 96 04/08/25 11:24 Temperature 97.8 F 04/08/25 12:17 Pulse Rate 80 04/08/25 13:04 Respiratory Rate 20 04/08/25 13:04 Blood Pressure 162/98 H 04/08/25 12:17 Pulse Oximetry 97 04/08/25 12:19 Oxygen Delivery Room Air 04/08/25 12:19 MDM - SOB/Dyspnea MDM Narrative Medical decision making narrative: Pt presents with SOB and feeling anxious. Pt is tearful. Pt says he is dealing with a lot at home. Pt denies CP or cough. will get labs to rule out pneumonia or CHF and cxr. vitals or good so doubt PE. Pt quite anxious so will give a little ativan Lab Data 04/08/25 11:40 04/08/25 11:40 Labs: Lab Results 04/08/25 Range/Units 11:40 WBC 7.0 (4.5-10.0) K/mm3 RBC 4.97 (4.6-6.20) M/mm3 Hgb 15.2 (14.0-18.0) g/dL Hct 47.3 (42.0-52.0) % MCV 95.2 (80-100) fl MCH 30.6 (26-34) pg MCHC 32.1 (32-36) g/dl RDW 13.9 (11.5-14.5) % Plt Count 203 (150-375) k/mm3 MPV 10.6 H (7.4-10.4) fl Immature Gran % (Auto) 0.3 (0-0.5) % Neut % (Auto) 75.0 H (45.5-73.1) % Lymph % (Auto) 17.2 L (18.3-44.2) % [place] % (Auto) 6.1 (2.6-8.5) % Eos % (Auto) 1.0 (0-4.4) % Baso % (Auto) 0.4 (0.2-1.2) % Lymph # (Auto) 1.21 (0.9-3.2) K/mm3 [place] # (Auto) 0.4 (0.1-0.6) K/mm3 Eos # (Auto) 0.1 (0-0.3) K/mm3 Baso # (Auto) 0.0 (0.0-0.1) K/mm3 Abs Immat Gran (auto) 0.02 (0.00-0.031) K/mm3 Absolute Neuts (auto) 5.3 (1.3-6.7) K/mm3 Absolute Nucleated RBC 0.000 (0.0-0.012) K/mm3 Nucleated RBC % 0.0 (0.0-0.2) % Sodium 141 (137-145) mmol/L Potassium 4.3 (3.4-5.0) mmol/L Chloride 106 (98-107) mmol/L Carbon Dioxide 27 (22-30) mmol/L Anion Gap 8 (4-12) mmol/L BUN 16 (9-20) mg/dL Creatinine 0.80 (0.7-1.3) mg/dL Estim Creat Clear Calc Not Reportable Estimated GFR > 60 (59 - ) Glucose 102 (65-110) mg/dL Calcium 9.7 (8.4-10.2) mg/dL Total Bilirubin 2.0 H (0.2-1.3) mg/dL AST 27 (17-59) U/L ALT 27 (6-50) U/L Alkaline Phosphatase 83 (38-126) U/L Troponin I < 0.012 (0.000-0.034) ng/mL NT-Pro-B Natriuret Pep 736 H (19.9-100) pg/mL Total Protein 8.0 (6.3-8.2) g/dL Albumin 4.5 (3.5-5.1) g/dL Discharge Plan Discharge Clinical Impression: Anxiety Patient Disposition: Home Condition: Improved Instructions: Antibiotic Form, Anxiety (ED) Patient Language: Fijian Prescriptions: New lorazepam [Ativan] 0.5 mg tablet 0.5 mg PO TID PRN (Reason: anxiety) Qty: 10 0RF No Action fluticasone propionate 50 mcg/actuation spray,suspension 1 spray INTRANASAL BID PRN (Reason: SINUS CONGESTION) acetaminophen 500 mg Tablet 1,000 mg PO QID PRN (Reason: Pain) Debrox 6.5 % drops 5 drp EACH EAR Q12H 4 Days Qty: 15 0RF tamsulosin 0.4 mg capsule 0.4 mg PO QHS Qty: 90 3RF cefdinir 300 mg capsule 300 mg PO Q12H Qty: 20 0RF lovastatin 20 mg tablet 20 mg PO . q.a.m. Qty: 90 3RF escitalopram oxalate [Lexapro] 20 mg tablet 20 mg PO . q.h.s. Qty: 90 3RF Eliquis 5 mg tablet 5 mg PO BID Qty: 180 3RF amlodipine 5 mg tablet 5 mg PO . q.a.m. Qty: 90 3RF buspirone 5 mg tablet 5 mg PO BID Qty: 60 11RF Follow-up/Referrals: Alexis Sullivan MD [Primary Care Provider] -
--- OUTSIDE RECORDS SUMMARY | 2025-04-08 12:52 | XMS_ITS | Encounter Summary ---
Author Organization [facility] Address [address] [place] [address] Care Team Providers Care Leadership Program Associate Name Role Phone Alexis Sullivan MD Primary Care Provider [phone] Encounter Details Date Type Department Care Team (Late st Contact Info) Description 11/03/2024 Telephone [facility] - Ophthalmology [address] [place] [phone] Misty Farias MD [address] [place] [address] [place] [address] Social History Tobacco Use Types [...] of Assessment Author No 09/08/2024 12:50 PM STAGE PRODUCER Tom Duque RN * Does person have difficulty dressing/bathing? Answer Date of Assessment Author No 09/08/2024 12:50 PM STAGE PRODUCER Tom Duque RN * Does person have difficulty doing errands alone? Answer Date of Assessment Author No 09/08/2024 12:50 PM STAGE PRODUCER Tom Duque RN documented as of this encounter Mental Status * Does person have difficulty concentrating/remembering/making decisions? Answer Entry Date Author No 09/08/2024 12:50 PM STAGE PRODUCER Tom Duque RN documented in this encounter Miscellaneous Notes * Telephone Encounter - Ajay Young - 11/03/2024 8:47 AM CST Patient's daughter called stating she is unable to bring the patient in for the appt tomorrow. Rescheduled to next available but would like to know if there is anyway he can be seen sooner. Please advise. E PRODUCER documented in this encounter Plan of Treatment Not on file documented as of this encounter Visit Diagnoses Not on filedocumented in this encounter Care Teams Leadership Program Associate Relationship Specialty Start Date End Date Alexis Sullivan MD [address] [place] [address] PCP - General 07/20/21 documented as of this encounter
--- OUTSIDE RECORDS SUMMARY | 2025-04-08 12:52 | XMS_ITS | Encounter Summary ---
Author Organization [facility] Address [address] [place] [address] Care Team Providers Care Sanitary Engineering Teacher Name Role Phone Alexis Sullivan MD Primary Care Provider [phone] Encounter Details Date Type Department Care Team (Late st Contact Info) Description 09/16/2024 Telephone [facility] - Ophthalmology [address] [place] [phone] Leo Ospina MD [address] [place] [address] [place] [address] Social History Tobacco Use Types [...] of Assessment Author No 09/08/2024 12:50 PM BOTTLE PACKER Tom Duque RN * Does person have difficulty dressing/bathing? Answer Date of Assessment Author No 09/08/2024 12:50 PM BOTTLE PACKER Tom Duque RN * Does person have difficulty doing errands alone? Answer Date of Assessment Author No 09/08/2024 12:50 PM BOTTLE PACKER Tom Duque RN documented as of this encounter Mental Status * Does person have difficulty concentrating/remembering/making decisions? Answer Entry Date Author No 09/08/2024 12:50 PM BOTTLE PACKER Tom Duque RN documented in this encounter Miscellaneous Notes * Telephone Encounter - Ajay Young - 09/16/2024 2:06 PM CST Patient's daughter calling to schedule patient's follow up appt. Daughter stated they were advised to return the first week of September but next available's are showing for October. Please advise. LE PACKER documented in this encounter Plan of Treatment Not on file documented as of this encounter Visit Diagnoses Not on filedocumented in this encounter Care Teams Sanitary Engineering Teacher Relationship Specialty Start Date End Date Alexis Sullivan MD [address] [facility] [address] [place] [address] PCP - General 07/20/21 documented as of this encounter
--- OUTSIDE RECORDS SUMMARY | 2025-04-08 12:53 | XMS_ITS | Clinical Summary ---
Author Organization [facility] Address [address] [place] [address] Care Team Providers Care Product Development Director Name Role Phone Alexis Sullivan MD Primary Care Provider [phone] Source Comments [facility],non-owned Affiliates and Associated Physician Practices is amultiple site organization consisting of ambulatory clinics and hospital sitesin [place], [place], [place] and [place]. This disclosure is being madepursuant to the Care Everywhere program and may not contain all information available regarding this patient. Last updated 18.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 - Ophthalmology [address] [place] [phone] Postop check (Primary Dx) 01/22/2025 Travel 01/20/2025 6:13 PM CDT Anesthesia Event [facility] [address] [place] [address] Silas Koenig MD Wilson, Patricia Ann, APRN-RIVET MAKER 01/20/2025 2:40 PM CDT - 01/20/2025 4:25 PM CDT Surgery [facility] [address] [place] [address] Leo Ospina MD Penetrating Keratoplasty, Right Eye and temporary tarsorrhaphy of right eyelids 01/20/2025 2:20 PM CDT - 01/20/2025 9:50 PM CDT Hospital Encounter [facility] [address] [place] [address] Leo Ospina MD Surgery General Discharge Disposition: Home or Self Care 01/20/2025 Travel 01/19/2025 Telephone [facility] - Op[facility]mology [address] [place] [address] Kathleen Mcneal MD Appointment from Last 3 [...] this topic Medical Devices Implanted Type Area Occupational Therapy Program Director Device Identifier Shelf Expiration Date Model / Serial / Lot Nico Cornea - Sn/A Implanted:Qty: 1 on 09/08/2024 by Leo Ospina MD at [facility] Right: Cornea [employer] [facility] 09/18/2024 BILL ONLY CORNEA / N/A / [id number] Description:Donor Number: [id number] Product: [id number] Tissue Exp: 09/18/2024 Optisol Exp: 08/20/2025 Donor ID Number: [id number] Right Cornea Implanted:Qty: 1 on 01/20/2025 by Leo Ospina MD at [facility] 09/05/2026 [id number] / / [id number] Procedures Procedure Name Priority [...] TUBE NOTE Routine 01/20/2025 6:47 PM CDT [place] CORNEAL TRANSPLANT,PENETRATI NG 01/20/2025 5:47 PM CDT [...] EYE EVERY 4 HOURS. trimethoprim-polymyxin B (Polytrim) 58173-5.1 UNIT/ML-% ophthalmic solution Instill 2 (two) drops into right eye 3 times daily Reasons: Wound to the Cornea caused by Scraping No current facility-administered medications for this visit. 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 tarsorrhaphy Physical Exam/Indications: Floppy eyelid [...] CDT) Case Report Surgical Pathology Report Case: [id number] Authorizing Provider: Leo Ospina MD Collected: 01/20/2025 06:58 PM Ordering Location: [facility] Received: 01/21/2025 04:35 AM Pathologist: Shahrzad Smith MD Specimen: Cornea, perforated cornea right 01/22/2025 11:11 AM CDT [facility] Final Diagnosis Cornea, right, penetrating keratoplasty (A): - Corneal epithelium with reactive changes - Hypercellular stroma with increased vessels, inflammation and ciliary body fragments - PAS highlights fragmented Descemet's membrane within stroma 01/22/2025 11:11 AM CDT [facility] at 1111 CDT Microscopic Description and Comment Microscopic examination substantiates the diagnosis. 01/22/2025 11:11 AM T [facility] Clinical History The patient is a 69 year old man with right corneal perforation. 01/22/2025 11:11 AM T [facility] Gross Description The requisition and specimen(s) are identified with the patient's name, Cesar Luciano. Received in formalin, specimen A, is a 0.6 x 0.6 cm shoemaker-white cloudy cornea excised to a depth of 0.2 cm. There is focal hemorrhage in the posterior aspect. The specimen is bisected and entirely submitted in cassette A1. IKD 01/22/2025 11:11 AM T [facility] Pathologist Location at [facility] 01/22/2025 11:11 AM CDT [facility] Disclaimer The performance characteristics of all immunohistochemical and indirect immunofluorescence stains (if any) cited in this report were determined by the Histopathology Laboratory of [facility]. Some of these tests were developed by [...] attending (teaching) pathologist. 01/22/2025 11:11 AM T [facility] Embedded Images 01/22/2025 11:11 AM T [facility] Biopsy, Excision CORNEAL PART / Unknown 01/20/2025 6:58 PM CDT 01/21/2025 4:35 AM CDT Comment:Pre-op diagnosis: perforated corneal ulcer in the right eye Leo Ospina MD LAB - PATHOLOGY/CYTOLOGY ORDER SUDHIR Final Result [facility] [address] [place] [address], [facility] [phone] * CULTURE FUNGUS OTHER+FUNGUS SMEAR (01/20/2025 6:55 PM CDT) Culture No fungus isolated [facility] 02/15/2025 8:[address] [facility] Microbiology ENTIRE EYE / Unknown Collection / Unknown 01/20/2025 6:55 PM CDT 01/20/2025 8:25 PM CDT Leo Ospina MD LAB - MICROBIOLOGY ORDERABLES Final Result [facility] [address] [place] [address], [facility] [phone] * ETT LINE PERFORMABLE (01/20/2025 6:47 PM CDT) Narrative Liat Herbert MD - 01/20/2025 6:47 PM CDT Liat Herbert MD 01/20/2025 6:48 PM Endotracheal Tube Placement: Patient Location: OR. Intubation Event Date/Time: 01/20/2025 6:26 PM Procedure: intubation (21754) Procedure Section: Sedation: under general anesthesia. Indications [...] MEDICARE ADV AETNA MEDICARE ADV Care Teams Product Development Director Relationship Specialty Start Date End Date Alexis Sullivan MD [address] [place] [address] PCP - General 07/20/21
--- OUTSIDE RECORDS SUMMARY | 2025-04-08 12:53 | XMS_ITS | Clinical Summary ---
Author Organization [facility] [address] Address [address] [place] [address] Care Team Providers Care Post Graduate Intern Name Role Phone Alexis Sullivan MD Primary Care Provider [phone] Allergies No known active allergies Medications tamsulosin [...] materials from doctor or pharmacy Sometimes 01/08/2024 [facility] Utilities Answer Date Recorded In the past 12 months has th e [employer], gas, oil, or water [employer] threatened to shut off services in your [...] often do you attend chur ch or confucianism services? More than 4 times per year 10/23/2023 Do you belong to any clubs o r organizations such as jewish groups, unions, fraternal or athletic groups, or [...] place to sleep or slept in a penitentiary (including now)? No 10/23/2023 Personal Safety Answer Date Recorded Have you ever been in or are you currently in a harmful physical or emotional relationship or is someone making you feel afraid or unsafe? Denies 10/18/2023 Sex and Gender Information Value Date Recorded Sex Assigned at Not on file Legal Sex Male 3:08 AM COMMUNICATION LECTURER Gender Identity Not on file Sexual Orientation [...] 95.3 kg (210 lb) 11/10/2023 10:37 AM COMMUNICATION LECTURER Height 170.2 cm (5' 7) 11/10/2023 10:37 AM COMMUNICATION LECTURER Body Mass Index 32.89 11/10/2023 10:37 AM COMMUNICATION LECTURER Plan of Treatment Health Maintenance Due Date [...] 11/07/2023 Influenza Vaccine (Season Ended) 2025 Insurance [email or web address] OOS Member Subscriber Plan / Payer (Ef fective 2022-Present) Name:Cesar Luciano Relation to Subscriber:Self Name:Cesar Luciano Payer ID:[id number] (NAIC) Type:[employer] Address: [address] MEDICARE [facility] MEDICARE Advance Directives For more information, please contact: [phone] * Full Code (Latest Code Status on File) Date Activated Date Inactivated Comments 10/18/2023 7:51 PM 11/07/2023 6:23 PM Care Teams Post Graduate Intern Relationship Specialty Start Date End Date Alexis Sullivan MD [address] [address] PCP - General Family Medicine 11/16/21
--- OUTSIDE RECORDS SUMMARY | 2025-04-08 12:53 | XMS_ITS | Clinical Summary ---
Author Organization [facility] Address [address] [address] Phone Care Team Providers Care Pool Technician Name Role Phone Alexis Sullivan MD Primary Care Provider [phone] Social History Tobacco Use Types Packs/Day Years Used Date Smoking Tobacco: Never Assessed Sex and Gender Information Value Date Recorded Sex Assigned at Not on file Legal Sex Male 1:59 PM PHLEBOTOMY DIRECTOR Gender Identity Not on file Sexual Orientation [...] patient's age to complete this topic Insurance [facility] Care Teams Pool Technician Relationship Specialty Start Date End Date Alexis Sullivan MD [address] [address] PCP - General Family Medicine 10/24/20
--- OUTSIDE RECORDS SUMMARY | 2025-04-08 12:53 | XMS_ITS | Referral Summary ---
Author Organization [facility] [address] Address [address] [place] [address] Care Team Providers Care Production Assistant Name Role Phone Alexis Sullivan MD Primary Care Provider [phone] Allergies No known active allergies Medications tamsulosin [...] materials from doctor or pharmacy Sometimes 01/08/2024 [facility] Utilities Answer Date Recorded In the past 12 months has th e [employer], gas, oil, or water [employer] threatened to shut off services in your [...] often do you attend chur ch or orthodox services? More than 4 times per year 10/23/2023 Do you belong to any clubs o r organizations such as rastafarian groups, unions, fraternal or athletic groups, or [...] place to sleep or slept in a residential (including now)? No 10/23/2023 Personal Safety Answer Date Recorded Have you ever been in or are you currently in a harmful physical or emotional relationship or is someone making you feel afraid or unsafe? Denies 10/18/2023 Sex and Gender Information Value Date Recorded Sex Assigned at Not on file Legal Sex Male 3:08 AM UNDERGROUND CONDUIT INSTALLER Gender Identity Not on file Sexual Orientation [...] 95.3 kg (210 lb) 11/10/2023 10:37 AM UNDERGROUND CONDUIT INSTALLER Height 170.2 cm (5' 7) 11/10/2023 10:37 AM UNDERGROUND CONDUIT INSTALLER Body Mass Index 32.89 11/10/2023 10:37 AM UNDERGROUND CONDUIT INSTALLER Plan of Treatment Not on file Insurance [employer] CHOICE OOS [employer] OOS AET MEDICARE AETNA MEDICARE Advance Directives For more information, please contact: [phone] * Full Code (Latest Code Status on File) Date Activated Date Inactivated Comments 10/18/2023 7:51 PM 11/07/2023 6:23 PM Care Teams Production Assistant Relationship Specialty Start Date End Date Alexis Sullivan MD [address] [address] PCP - General Family Medicine 11/16/21
[2025-04-08 12:55] VITALS: PULSE 77; RESP 28
[2025-04-08] MEDS: IPRATROPIUM 0.5 MG/ALBUTEROL SULFATE 2.5 MG AMPUL.NEB 3 ML INHALATION (12:55)
[2025-04-08] MEDS: LORazepam INJ (*CRX) 2 MG/ML VIAL 1 MG IV PUSH (12:57)
[2025-04-08 13:04] VITALS: PULSE 80; RESP 20
[2025-04-08 14:05] LABS: NT Pro B Type Natriuretic Pept 736 pg/mL (19.9-100); Troponin I < 0.012 ng/mL (0.000-0.034)
== END 2025-04-08 15:52 | disposition home or self-care (01) ==
PROVIDERS: Emergency Provider Emergency Medicine; PCP Family Medicine
DX: F41.9 Anxiety disorder, unspecified (principal); I48.91 Unspecified atrial fibrillation; I10 Essential (primary) hypertension; E78.2 Mixed hyperlipidemia; E55.9 Vitamin D deficiency, unspecified; E66.9 Obesity, unspecified; Z68.42 Body mass index [BMI] 45.0-49.9, adult; N40.0 Benign prostatic hyperplasia without lower urinary tract symptoms; H04.121 Dry eye syndrome of right lacrimal gland; K58.0 Irritable bowel syndrome with diarrhea; M17.12 Unilateral primary osteoarthritis, left knee; F32.A Depression, unspecified; Z96.652 Presence of left artificial knee joint; Z90.49 Acquired absence of other specified parts of digestive tract; Z87.01 Personal history of pneumonia (recurrent); Z79.01 Long term (current) use of anticoagulants; Z79.899 Other long term (current) drug therapy; R94.31 Abnormal electrocardiogram [ECG] [EKG]
CPT/HCPCS: 36415; 71045; 80053; 83880; 84484; 85025; 93005; 94640; 96374; 99284; J2060

== ENCOUNTER 2025-06-10 14:53 | Emergency (ER) | payer MEDICARE, SELFPAY ==
--- NOTE | ~2025-06-10 | CT_ITS ---
EXAMINATION: CT brain wo con DATE: 06/10/2025 16:43 INDICATION: Dizziness. TECHNIQUE: Computed tomography (CT) of the head was performed without intravenous contrast. The dose-length product was 681.00 mGy-cm. COMPARISON: 08/17/2024 FINDINGS: No acute intracranial hemorrhage. No mass effect. No midline shift. No hydrocephalus. No skull fracture. Visualized paranasal sinuses and mastoid air cells are clear. There are several low density regions scattered throughout the periventricular and deep white matter which are favored to represent chronic ischemic white matter change. IMPRESSION: 1. No acute intracranial hemorrhage. No mass effect. 2. Probable chronic ischemic white matter change. Reviewed, dictated and finalized at location Q.
--- NOTE | ~2025-06-10 | XR_ITS ---
EXAMINATION: XR chest 2V 06/10/2025 15:34 INDICATION: Near syncope. Tachypnea TECHNIQUE:Frontal and lateral images of the chest were obtained. COMPARISON: 04/08/2025 FINDINGS: Moderate elevation of the right hemidiaphragm, unchanged. Cardiomediastinal silhouette is enlarged, unchanged. No pneumothorax. No pleural effusion. No free air under the diaphragm. No focal pulmonary consolidation. IMPRESSION: 1: No acute pulmonary process identified. 2. Moderate elevation of the right hemidiaphragm, unchanged. Reviewed, dictated and finalized at location Q.
[2025-06-10 14:49] VITALS: BP 145/101; PULSE 97; RESP 36; TEMP 36.9; O2SAT 97
--- NOTE | 2025-06-10 15:00 | ECG_ITS ---
Test Date: 2025-06-10 15:02:10 Measurements Intervals Sachse Rate: 76 P: 0 DE: 0 QRS: -18 QRSD: 98 T: 29 QT: 371 QTc: 419 Interpretive Statements ATRIAL FIBRILLATION NONSPECIFIC ST & T-WAVE ABNORMALITY ABNORMAL RHYTHM ECG Compared to ECG 04/08/2025 11:32:39 Myocardial infarct finding no longer present T-wave abnormality still present Electronically Signed On 06-11-2025 15:07:53 CDT by Macho Batista M.D.
[2025-06-10 15:24] LABS: Hematocrit 46.7 % (42.0-52.0); Hemoglobin 15.2 g/dL (14.0-18.0); Immature Granulocyte Percent A 0.4 % (0-0.5); Lymphocytes Absolute Auto 1.33 K/mm3 (0.9-3.2); Mean Corpuscular HGB Conc 32.5 g/dl (32-36); Mean Corpuscular Hemoglobin 30.3 pg (26-34); Mean Corpuscular Volume 93.2 fl (80-100); Nucleated Red Blood Cells Absolute Auto 0.000 K/mm3 (0.0-0.012); Nucleated Red Blood Cells Perc 0.0 % (0.0-0.2); Platelet Count Result 226 k/mm3 (150-375); Red Blood Count 5.01 M/mm3 (4.6-6.20); White Blood Count 7.9 K/mm3 (4.5-10.0)
[2025-06-10 15:36] LABS: Alanine Aminotransferase 23 U/L (6-50); Albumin Level 4.4 g/dL (3.5-5.1); Alkaline Phosphatase 101 U/L (38-126); Anion Gap 7 mmol/L (4-12); Aspartate Amino Transferase 25 U/L (17-59); Bilirubin,Total 2.1 mg/dL (0.2-1.3); Blood Urea Nitrogen 13 mg/dL (9-20); Calcium 9.6 mg/dL (8.4-10.2); Carbon Dioxide 26 mmol/L (22-30); Chloride 105 mmol/L (98-107); Estimated CRCL calculation 90 ml/min; Estimated Glomerular Filt Rate > 60; Glucose 101 mg/dL (65-110); Potassium 4.0 mmol/L (3.4-5.0); Sodium 138 mmol/L (137-145); Total Protein 7.5 g/dL (6.3-8.2)
--- NOTE | 2025-06-10 16:06 | ED_ITS ---
HPI - Dizziness General Chief Complaint: Syncope Stated Complaint: weakness Time Seen by Provider: 06/10/25 15:08 History of Present Illness HPI Narrative: This is a 70-year-old male with history of AFib on Eliquis, hyperlipidemia, hypertension, who presents the ED for dizziness. Patient states that he has had 2 episodes in the last day in which he has had sudden-onset dizziness. Does not recall any specific movement that is exacerbated this. He states that he got so dizzy at 1 point that he almost fell. He has never had this before. Is otherwise asymptomatic at this time. Denies recent illnesses. Related Data Home Medications ?Medication ?Instructions ?Recorded ?Confirmed ?Last Taken ?Type acetaminophen 500 mg tablet 1,000 mg PO QID PRN Pain 0 11/14/21 02/05/24 10/31/21 History fluticasone propionate 50 1 spray intranasal BID PRN S INUS 12/25/21 02/05/24 Unknown History mcg/actuation nasal CONGESTION spray,suspension Allergies Allergy/AdvReac Type Severity Reaction Status Date / Time quetiapine (From Seroquel) AdvReac Unknown Fainting Verified 04/08/25 11:15 Review of Systems 2 Review of Systems: Gen.: Denies fevers or chills Eyes: Denies eye pain or visual change ENT: Denies congestion Respiratory: Denies shortness of breath or cough CV: Denies chest pain or palpitations GI: Denies abdominal pain nausea, emesis or diarrhea denies burning, urgency, frequency or hematuria Musculoskeletal: Denies back pain or muscle pain Neuro: Denies numbness, tingling, weakness or focal weakness Skin: Denies rash Except as documented, all other systems reviewed and negative FORMERLY [facility], [facility] Past Medical History Medical History BMI 35.0-35.9,adult BMI 33.0-33.9,adult Influenza A (~10/16/23) Pneumonia, community acquired (~10/16/23) Dry eye syndrome of right eye dry eye syndrome with chronic inflammation right eye Acute bronchitis Chest x-ray 12/27/2022 with basilar atelectasis or pneumonia. At high risk for falls fell 11/13/2022 with hematoma left hip. Essential tremor (~11/22/22) essential tremor right upper extremity Ataxia (~11/19/22) MRI of the brain 12/04/2022 was unremarkable except for the inflammation of the sinuses. MRI of the lumbar spine revealed moderate spondylosis with severe stenosis of the lateral recess bilaterally at L5-S1. Irritable bowel syndrome with diarrhea Ptosis of eyelid, bilateral (~2021) treated surgically BMI 37.0-37.9, adult Obesity (BMI 30-39.9) Male erectile dysfunction, unspecified Total testosterone 275 with free testosterone low at 6.2 on 11/15/2022. Total testosterone normal at 504.6 with free testosterone 4.3. Obesity (BMI 30.0-34.9) Atrial fibrillation with normal ventricular rate (11/09/21) Echocardiogram on 11/17/2021 reveals ejection fraction 65-70% with intermediate diastolic dysfunction with small pericardial effusion and mild tricuspid valve regurgitation and mild mitral valve regurgitation Exposure to COVID-19 virus (~10/08/21) Arthritis of left knee Hypertension Polyp of colon (07/14/21) colon polyp on 07/14/2021 BMI 36.0-36.9,adult Plantar fasciitis, bilateral Conjunctivitis Mixed hyperlipidemia total cholesterol 201, triglycerides 54, HDL 50, LDL 115 on 11/09/2021. Total cholesterol 168, triglycerides 88, HDL 55, LDL 97 on 11/15/2022. normal MCKENNA on 10/23/2024. BPH without obstruction/lower urinary tract symptoms PSA 2.3 on 11/09/2021. PSA 2.1 on 11/15/2022. Colon cancer screening Adult BMI 34.0-34.9 kg/sq m COVID-19 (08/29/20) Acute sinusitis, unspecified Fever Insomnia Chest pain Hypersomnia Male erectile dysfunction, unspecified Vitamin B12 deficiency anemia, unspecified level greater than 1000 on 11/09/2021. Level normal at 469 with folic acid 9.5 and hemoglobin 13.0 on 11/15/2022. Body mass index (bmi) 38.0-38.9, adult (03/09/19) Chronic anxiety (~02/09/14) Chronic depression (~02/09/14) Eczema of lower extremity Essential (primary) hypertension Nocturia Seasonal allergic rhinitis Vitamin D deficiency, unspecified Surgical History Surgical History History of left knee replacement Unicompartmental 11/27/2021 History of cholecystectomy Family History Family History Mother Hypertension, Onset Age: 84 Sibling Hypertension Other Malignant neoplasm of prostate Social History Social History Smoking status: Never smoker Second hand tobacco smoke exposure: No Alcohol intake: current Drinks per week: 3 Alcohol use details: STATES MAYBE 6/MONTH Substance use: never Substance use type: does not use Do You Feel Safe in your Home?: Yes Lack of Transportation: No Lack of Food: Never True Current Housing: Decline to Answer Concerned About Future Housing: No Difficulty Paying Gas/Electric Bills: No Difficulty Paying for Meds: No Currently Unemployed: No Education: High School Diploma/GED Difficulty w/ Childcare or Family Care: No Living arrangements: with family Occupation/Education: retired 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 CARDIOVASCULAR: Regular rate and rhythm without murmurs rubs or gallops. ABDOMINAL: Soft, nontender, nondistended, no rebound or guarding MUSCULOSKELETAl: Moves all extremities. No clubbing, cyanosis or edema. NEURO: Awake and alert. Following commands, speech normal, no focal deficits SKIN:: Warm, dry. No rashes lesions or abrasions PSYCHIATRIC: Normal affect/mood, Course Vital Signs Vital signs: Vital Signs Temperature 98.4 F 06/10/25 14:49 Pulse Rate 97 06/10/25 14:49 Respiratory Rate 36 H 06/10/25 14:49 Blood Pressure 145/101 H 06/10/25 14:49 Pulse Oximetry 97 06/10/25 14:49 Oxygen Delivery Room Air 06/10/25 14:49 Temperature 98.4 F 06/10/25 14:49 Pulse Rate 83 06/10/25 19:16 Respiratory Rate 36 H 06/10/25 14:49 Blood Pressure 163/94 H 06/10/25 19:16 Pulse Oximetry 98 06/10/25 19:16 Oxygen Delivery Room Air 06/10/25 17:15 MDM - Dizziness MDM Narrative Medical decision making narrative: 70-year-old male that presents to the ED for a couple episodes of transient dizziness. On initial evaluation, patient was in no acute distress, afebrile, hemodynamically stable. He had no focal deficits. He was asymptomatic on my evaluation and had been asymptomatic for several hours. Chest x-ray showed no acute process. CT head showed no acute process. CBC and CMP without significant abnormalities. Patient was able ambulate throughout the department that any significant difficulties. Patient was deemed appropriate for discharge at this time. He was advised follow-up with his PCP next week for re- evaluation. Patient was agreeable to this plan. Given strict return precautions. Differential Diagnosis Differential diagnosis: Likely benign paroxysmal positional vertigo, orthostatic hypotension, cerebrovascular accident and transient cerebral ischemia Medical Records Attestation: I reviewed the patient's medical records. Lab Data Attestation: I reviewed the patient's lab results. 06/10/25 15:14 06/10/25 15:14 Labs: Lab Results 06/10/25 Range/Units 15:14 WBC 7.9 (4.5-10.0) K/mm3 RBC 5.01 (4.6-6.20) M/mm3 Hgb 15.2 (14.0-18.0) g/dL Hct 46.7 (42.0-52.0) % MCV 93.2 (80-100) fl MCH 30.3 (26-34) pg MCHC 32.5 (32-36) g/dl RDW 13.3 (11.5-14.5) % Plt Count 226 (150-375) k/mm3 MPV 10.7 H (7.4-10.4) fl Immature Gran % (Auto) 0.4 (0-0.5) % Neut % (Auto) 74.7 H (45.5-73.1) % Lymph % (Auto) 16.9 L (18.3-44.2) % Boyd % (Auto) 6.4 (2.6-8.5) % Eos % (Auto) 1.3 (0-4.4) % Baso % (Auto) 0.3 (0.2-1.2) % Lymph # (Auto) 1.33 (0.9-3.2) K/mm3 Boyd # (Auto) 0.5 (0.1-0.6) K/mm3 Eos # (Auto) 0.1 (0-0.3) K/mm3 Baso # (Auto) 0.0 (0.0-0.1) K/mm3 Abs Immat Gran (auto) 0.03 (0.00-0.031) K/mm3 Absolute Neuts (auto) 5.9 (1.3-6.7) K/mm3 Absolute Nucleated RBC 0.000 (0.0-0.012) K/mm3 Nucleated RBC % 0.0 (0.0-0.2) % Sodium 138 (137-145) mmol/L Potassium 4.0 (3.4-5.0) mmol/L Chloride 105 (98-107) mmol/L Carbon Dioxide 26 (22-30) mmol/L Anion Gap 7 (4-12) mmol/L BUN 13 (9-20) mg/dL Creatinine 0.73 (0.7-1.3) mg/dL Estim Creat Clear Calc 90 ml/min Estimated GFR > 60 (59 - ) Glucose 101 (65-110) mg/dL Calcium 9.6 (8.4-10.2) mg/dL Total Bilirubin 2.1 H (0.2-1.3) mg/dL AST 25 (17-59) U/L ALT 23 (6-50) U/L Alkaline Phosphatase 101 (38-126) U/L Total Protein 7.5 (6.3-8.2) g/dL Albumin 4.4 (3.5-5.1) g/dL Imaging Data Attestation: I personally reviewed and interpreted this imaging study as follows: My impression: I reviewed the radiologist's interpretation Radiologist's impression: Impressions Chest X-Ray 06/10/25 15:48 IMPRESSION: 1: No acute pulmonary process identified. 2. Moderate elevation of the right hemidiaphragm, unchanged. Head CT 06/10/25 16:44 IMPRESSION: 1. No acute intracranial hemorrhage. No mass effect. 2. Probable chronic ischemic white matter change. Discharge Plan Discharge Clinical Impression: Vertigo Patient Disposition: Home Condition: Stable Instructions: Antibiotic Form Additional Instructions: Follow-up with the PCP in the next week for re-evaluation. Return the ED for any new or worsening symptoms. Patient Language: New Zealander Prescriptions: No Action fluticasone propionate 50 mcg/actuation spray,suspension 1 spray INTRANASAL BID PRN (Reason: SINUS CONGESTION) acetaminophen 500 mg Tablet 1,000 mg PO QID PRN (Reason: Pain) lorazepam [Ativan] 0.5 mg tablet 0.5 mg PO TID PRN (Reason: anxiety) Qty: 10 0RF Debrox 6.5 % drops 5 drp EACH EAR Q12H 4 Days Qty: 15 0RF tamsulosin 0.4 mg capsule 0.4 mg PO QHS Qty: 90 3RF cefdinir 300 mg capsule 300 mg PO Q12H Qty: 20 0RF escitalopram oxalate [Lexapro] 20 mg tablet 20 mg PO . q.h.s. Qty: 90 3RF Eliquis 5 mg tablet 5 mg PO BID Qty: 180 3RF amlodipine 5 mg tablet 5 mg PO . q.a.m. Qty: 90 3RF buspirone 5 mg tablet 5 mg PO BID Qty: 60 11RF lovastatin 20 mg tablet 20 mg PO . q.a.m. Qty: 90 3RF Follow-up/Referrals: Alexis Sullivan MD [Primary Care Provider, Family Practice]
--- OUTSIDE RECORDS SUMMARY | 2025-06-10 16:42 | XMS_ITS | Clinical Summary ---
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 Gender Identity Not on file Sexual Orientation Not on file Plan of Treatment Health Maintenance Due Date Last Done Comments Hepatitis C Virus (HCV) Screening 1955 TdaP Immunization 1955 Cologuard 1998 Colonoscopy 1998 Colorectal Cancer Screening 1998 Immunochemical Fecal Occult Blood 1998 Pneumococcal Immunization (5 0+ years) (1 of 1 - PCV) 2003 Zoster Immunization (1 of 2) 2003 SARS-COV-2 Immunization (1 - 2023- season) 2024 Influenza Immunization (#1) 2025 Respiratory Syncytial Virus (RSV) Immunization (Adult) (1 - 1-dose 75+ series) 2028 Hepatitis B Immunization Aged Out No longer eligible based on patient's age to complete this topic Human Papillomavirus (HPV) Immunization Aged Out No longer eligible b ased on patient's age to complete this topic Meningococcal Immunization (ACWY) Aged Out No longer eligible based on patient's age to complete this topic Rotavirus Immunization Aged Out No lo nger eligible based on patient's age to complete this topic Insurance [facility] Care Teams Pattern Setter Relationship Specialty Start Date End Date Alexis Sullivan MD [address] [address] PCP - General Family Medicine 10/24/20
--- OUTSIDE RECORDS SUMMARY | 2025-06-10 16:42 | XMS_ITS | Clinical Summary ---
Author Organization [facility] [address] Address [address] [place] [address] Care Team Providers Care Sign Builder Name Role Phone Alexis Sullivan MD Primary Care Provider [phone] Allergies No known active allergies Medications tamsulosin [...] materials from doctor or pharmacy Sometimes 01/08/2024 [facility] Utilities Answer Date Recorded In the past 12 months has th e [employer], gas, oil, or water [employer] threatened to shut off services in your home? No 10/23/2023 Social Connection and Isolation Panel Answer Date Recorded In a typical week, how many times do you talk on the phone with family, friends, or neighbors? Never 10/23/2023 How often do you get togethe r with friends or relatives? More than three times a week 10/23/2023 How often do you attend chur ch or latter day services? More than 4 times per year 10/23/2023 Do you belong to any clubs o r organizations such as sabianist groups, unions, fraternal or athletic groups, or [...] place to sleep or slept in a halfway (including now)? No 10/23/2023 Personal Safety Answer Date Recorded Have you ever been in or are you currently in a harmful physical or emotional relationship or is someone making you feel afraid or unsafe? 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 Gender Identity Not on file Sexual Orientation [...] 95.3 kg (210 lb) 11/10/2023 10:37 AM DEPUTY SHERIFF CHIEF Height 170.2 cm (5' 7) 11/10/2023 10:37 AM DEPUTY SHERIFF CHIEF Body Mass Index 32.89 11/10/2023 10:37 AM DEPUTY SHERIFF CHIEF Plan of Treatment Health Maintenance Due Date Last Done Comments Colon Cancer Screening-Colonoscopy 1955 Depression Screening 1955 Hepatitis C Screening 1955 DTaP/Tdap/Td Vaccine (1 - Tdap) 1964 Hepatitis B Screening 1971 Pneumococcal vaccine 65+ (1 of 2 - PCV) 1972 Zoster Vaccine (1 of 2) 2003 Abdominal Aortic Aneurysm (AAA) Screen 2018 Well Visit 65+ 2018 Fall Risk Assessment 11/07/2024 11/07/2023 Covid-19 Vaccine ( season) 05/31/202502/2021, 11/05/2020 Influenza Vaccine (#1) 2025 Insurance [employer] OOS Member Subscriber Plan / Payer (Ef fective 2022-Present) Name:Cesar Luciano Relation to Subscriber:Self Name:Cesar Luciano Payer ID:[id number] (NAIC) Type:[facility] Address: [address] MEDICARE [facility] MEDIC[facility] Advance Directives For more information, please contact: [phone] * Full Code (Latest Code Status on File) Date Activated Date Inactivated Comments 10/18/2023 7:51 PM 11/07/2023 6:23 PM Care Teams Sign Builder Relationship Specialty Start Date End Date Alexis Sullivan MD [address] [address] PCP - General Family Medicine 11/16/21
[2025-06-10] MEDS: SODIUM CHLORIDE 0.9% IV 1,000 ML 999 ML IV CONT (17:09)
[2025-06-10 17:15] VITALS: O2SAT 96
[2025-06-10 19:16] VITALS: BP 163/94; PULSE 83; O2SAT 98
== END 2025-06-10 19:16 | disposition home or self-care (01) ==
PROVIDERS: Emergency Medicine; Emergency Provider Student in an Organized Health Care Education/Training Program; PCP Family Medicine
DX: R42 Dizziness and giddiness (principal); I48.91 Unspecified atrial fibrillation; I10 Essential (primary) hypertension; E78.2 Mixed hyperlipidemia; Z79.01 Long term (current) use of anticoagulants
CPT/HCPCS: 36415; 70450; 71046; 80053; 85025; 93005; 96360; 99283; J7030